=== PATIENT | female | born 1950 ===

== ENCOUNTER 2021-08-05 10:00 | Outpatient (REF) | payer MEDICARE, SELFPAY ==
[2021-08-05 10:23] LABS: MANUAL DIFF FLAG NO
[2021-08-05 10:33] LABS: Basophils Percent Auto 0.3 % (0-2); Eosinophils Absolute Auto 0.1 X10*3/uL (0.0-0.4); Eosinophils Percent Auto 1.4 % (0-4); Hemoglobin 14.7 g/dl (12.0-16.0); Imm Gran Abs Auto 0.02 X10*3/uL (0.00-0.03); Imm Gran Pct Auto 0.2 % (0.0-0.4); Lymphocytes Absolute Auto 2.2 X10*3/uL (1.2-4.9); Lymphocytes Percent Auto 24.3 % (20-40); Mean Corpuscular HGB Conc 33.4 g/dl (31.0-35.0); Mean Corpuscular Hemoglobin 31.4 pg (27.0-33.0); Mean Platelet Volume 9.3 fL (9.4-12.3); Monocytes Absolute Auto 0.7 X10*3/uL (0.1-1.2); Monocytes Percent Auto 8.2 % (2-11); Neutrophils Percent Auto 65.6 % (45-73); Platelet Count 329 X10*3/uL (160-400); Red Blood Count 4.68 X10*6/uL (4.20-5.50); Red Cell Distribution Width 14.2 % (11.0-16.0); White Blood Count 9.1 X10*3/uL (4.8-10.8)
[2021-08-05 11:10] LABS: B Type Natriuretic Peptide 53 pg/mL (<100)
[2021-08-05 11:20] LABS: Alanine Aminotransferase 13 U/L (0-31); Albumin Level 4.5 g/dL (3.5-5.0); Alkaline Phosphatase 58 U/L (39-117); Anion Gap 15 (12-20); Aspartate Amino Transferase 24 U/L (5-31); Bilirubin Total 1.6 mg/dL (0.0-1.0); Blood Urea Nitrogen 20 mg/dL (9-16); Calcium 9.7 mg/dL (8.4-10.2); Carbon Dioxide 22 mmol/L (22-29); Chloride 107 mmol/L (96-108); Cholesterol 193 mg/dL; Estimated Glomerular Filt Rate > 60; Glucose Random 98 mg/dL (60-115); HDL Cholesterol 64 mg/dL; LDL Cholesterol Calculated 104 mg/dl; Potassium 4.8 mmol/L (3.3-5.1); Sodium 139 mmol/L (135-145); Total Protein 7.7 g/dL (6.5-8.0); Triglycerides 125 mg/dL
[2021-08-05 11:40] LABS: Free T4 (Free Thyroxine) 0.98 ng/dL (0.71-1.85); Thyroid Stimulating Hormone 0.72 uIU/mL (0.32-4.0); Vitamin D 25-OH Total 17.8 ng/mL (>30)
[2021-08-05 11:54] LABS: Folate 10.5 ng/mL (> or = 4.0); Vitamin B12 464 pg/mL (200-900)
== END 2021-08-05 10:01 | disposition home or self-care (01) ==
LOC: HO.10HDL 10:00
PROVIDERS: Visit Provider Internal Medicine
DX: I25.10 Atherosclerotic heart disease of native coronary artery without angina pectoris (principal); E78.00 Pure hypercholesterolemia, unspecified
CPT/HCPCS: 36415; 80053; 80061; 82306; 82607; 82746; 83880; 84439; 84443; 85025

== ENCOUNTER 2021-08-12 10:01 | Outpatient (REF) | payer MEDICARE, SELFPAY ==
[2021-08-12 10:48] LABS: Bilirubin Direct 0.4 mg/dL (0.0-0.5); Lactate Dehydrogenase 187 U/L (122-220)
[2021-08-17 21:22] LABS: Haptoglobin 60 mg/dL (43-212)
== END 2021-08-12 10:02 | disposition home or self-care (01) ==
LOC: HO.10HDL 10:01
PROVIDERS: Visit Provider Internal Medicine
DX: E80.6 Other disorders of bilirubin metabolism (principal)
CPT/HCPCS: 36415; 82248; 83010; 83615

== ENCOUNTER 2021-10-06 10:43 | Outpatient (REF) | payer BC, SELFPAY ==
--- NOTE | ~2021-10-06 | CT_ITS ---
EXAMINATION: CT CHEST SCREENING CLINICAL INFORMATION: Nicotine dependence. 52 year-pack history smoking 1 pack per day. COMPARISON: 04/23/2019 and 04/21/2018 TECHNIQUE: Multidetector volumetric CT imaging of the chest is performed without contrast using low dose technique. Additional 2-D coronal and sagittal reformatted images and axial 3-D maximum intensity projection (MIP) images are generated on the CT workstation. This CT examination was performed using dose optimization techniques as appropriate, variously including the following: *Automated exposure control *Adjustment of mA and/or kV according to patient size (this includes techniques or standardized protocols for targeted exams where dose is matched to indication/reason for exam; i.e. extremities or head) *Use of iterative reconstruction technique DLP: 45 mGy-cm FINDINGS: LUNGS: Central airways are patent. No bronchial wall thickening is seen. No bronchiectasis. No confluent parenchymal disease. There are mild changes of centrilobular emphysema present. There are a few scattered calcified granulomas present. There are a few scattered sub-4 mm densities present. No suspicious lung nodules are identified. There has been improvement in previous right middle lobe, lingula, and right lower lobe densities from previous study. MEDIASTINUM: Visualized thyroid gland appears unremarkable. Heart normal size. Coronary artery calcification is seen. No pericardial effusion. Ascending thoracic aorta measures up to 3.9 cm in diameter. There is calcified plaque seen about the aortic arch most prominent involving the origin of the left subclavian artery. This does not appear to be occlusive. No mediastinal or hilar lymphadenopathy is appreciated. PLEURA: There is no pleural effusion. No pleural mass or thickening. AXILLA: No lymphadenopathy. UPPER ABDOMEN: There is again noted to be an approximately 1.9 x 1.7 cm lipid-rich adenoma in the right adrenal gland. OSSEOUS STRUCTURES: No suspicious destructive bony lesions identified. CT/CT lung screening IMPRESSION: Old granulomatous disease. Mild changes of centrilobular emphysema. No suspicious lung nodules identified. ASSESSMENT: Lung-RADS category 2: Benign. RECOMMENDATION: Routine annual low-dose CT screening in 12 months.
== END 2021-10-06 10:44 | disposition home or self-care (01) ==
LOC: HO.CT 10:43
PROVIDERS: PCP Internal Medicine; Visit Provider Physician Assistant Medical
DX: Z12.2 Encounter for screening for malignant neoplasm of respiratory organs (principal); F17.210 Nicotine dependence, cigarettes, uncomplicated
CPT/HCPCS: 71271

== ENCOUNTER 2021-10-26 11:16 | Outpatient (REF) | payer MEDICARE, SELFPAY ==
[2021-10-26 13:57] LABS: Estimated Average Glucose 94 mg/dL; Hemoglobin A1C 113.5416 umol/L; Hemoglobin A1c % 4.9 %
[2021-10-26 14:32] LABS: Alanine Aminotransferase 16 U/L (0-31); Albumin Level 4.2 g/dL (3.5-5.0); Alkaline Phosphatase 59 U/L (39-117); Anion Gap 11 (12-20); Aspartate Amino Transferase 18 U/L (5-31); Bilirubin Total 1.3 mg/dL (0.0-1.0); Blood Urea Nitrogen 25 mg/dL (9-16); Calcium 9.7 mg/dL (8.4-10.2); Carbon Dioxide 25 mmol/L (22-29); Chloride 108 mmol/L (96-108); Cholesterol 143 mg/dL; Estimated Glomerular Filt Rate > 60; Glucose Random 94 mg/dL (60-115); HDL Cholesterol 54 mg/dL; LDL Cholesterol Calculated 69 mg/dl; Potassium 4.5 mmol/L (3.3-5.1); Sodium 139 mmol/L (135-145); Total Protein 7.1 g/dL (6.5-8.0); Triglycerides 103 mg/dL
[2021-10-26 14:43] LABS: Vitamin D 25-OH Total 16.7 ng/mL (>30)
== END 2021-10-26 11:17 | disposition home or self-care (01) ==
LOC: HO.10HDL 11:16
PROVIDERS: Visit Provider Internal Medicine
DX: R73.02 Impaired glucose tolerance (oral) (principal); E78.00 Pure hypercholesterolemia, unspecified; E55.9 Vitamin D deficiency, unspecified
CPT/HCPCS: 36415; 80053; 80061; 82306; 83036

== ENCOUNTER 2022-12-10 15:12 | Outpatient (REF) | payer MEDICARE, SELFPAY ==
--- NOTE | ~2022-12-10 | CT_ITS ---
EXAMINATION: CT CHEST SCREENING CLINICAL INFORMATION: F17.210 - Nicotine dependence, cigarettes, uncomplicated. 50 pack years. COMPARISON: CT lung screening 10/06/2021, 04/23/2019 TECHNIQUE: Multidetector volumetric CT imaging of the chest is performed without contrast using low dose technique. Additional 2D coronal and sagittal reformatted images and axial 3D maximum intensity projection (MIP) images are generated on the CT workstation. This CT examination was performed using dose optimization techniques as appropriate, variously including the following: *Automated exposure control *Adjustment of mA and/or kV according to patient size (this includes techniques or standardized protocols for targeted exams where dose is matched to indication/reason for exam; i.e. extremities or head) *Use of iterative reconstruction technique DLP: 54 mGy-cm FINDINGS: LUNGS: Central airways are clear. No endobronchial lesion or bronchiectasis. No airspace consolidation or groundglass opacity. There is fine disc atelectasis versus fine linear scar at the bases. There are some small scattered calcified granulomata, largest under 4 mm. There is no mass or significant nodule. No interval significant change. MEDIASTINUM: No hilar or mediastinal adenopathy. Heart size normal. No pericardial effusion. Ascending aorta 3.9 cm similar to prior exam. No interval aneurysmal enlargement. CORONARY ARTERY CALCIFICATION: Coronary atherosclerotic calcifications present. PLEURA: There is no pleural effusion. No pleural mass or thickening. AXILLA: No lymphadenopathy. UPPER ABDOMEN: Right adrenal lipid rich adenoma approximately 2.4 x 2.2 cm, 9 HU attenuation. Prior measurement approximately 2.0 cm. No significant change. OSSEOUS STRUCTURES: Unremarkable. CT/CT lung screening IMPRESSION: -Small calcified granulomata. No significant nodule or interval change. -Ascending the aorta is stable, approximately 3.9 cm. -Right adrenal lipid rich adenoma 2.4 cm, prior measurement 2.0 cm. No significant change.. ASSESSMENT: Lung-RADS category 2: Benign RECOMMENDATION: Routine annual low-dose CT screening in 12 months.
== END 2022-12-10 15:13 | disposition home or self-care (01) ==
LOC: HO.CT 15:12
PROVIDERS: PCP Internal Medicine; Visit Provider Physician Assistant Medical
DX: Z12.2 Encounter for screening for malignant neoplasm of respiratory organs (principal); F17.210 Nicotine dependence, cigarettes, uncomplicated
CPT/HCPCS: 71271

== ENCOUNTER 2023-03-09 08:50 | Outpatient (REF) | payer MEDICARE, SELFPAY ==
[2023-03-09 10:38] LABS: MANUAL DIFF FLAG NO
[2023-03-09 10:41] LABS: Basophils Absolute Auto 0.1 X10*3/uL (0.0-0.2); Basophils Percent Auto 0.6 % (0-2); Eosinophils Absolute Auto 0.3 X10*3/uL (0.0-0.4); Eosinophils Percent Auto 3.3 % (0-4); Hematocrit 47.9 % (37.0-47.0); Hemoglobin 15.9 g/dl (12.0-16.0); Imm Gran Abs Auto 0.03 X10*3/uL (0.00-0.03); Imm Gran Pct Auto 0.3 % (0.0-0.4); Lymphocytes Absolute Auto 2.5 X10*3/uL (1.2-4.9); Lymphocytes Percent Auto 28.8 % (20-40); Mean Corpuscular HGB Conc 33.2 g/dl (31.0-35.0); Mean Corpuscular Hemoglobin 31.1 pg (27.0-33.0); Mean Corpuscular Volume 93.6 fL (80.0-98.0); Mean Platelet Volume 9.6 fL (9.4-12.3); Monocytes Absolute Auto 0.7 X10*3/uL (0.1-1.2); Monocytes Percent Auto 7.8 % (2-11); Neutrophils Absolute Auto 5.1 x10*3/uL (2.0-8.3); Neutrophils Percent Auto 59.2 % (45-73); Platelet Count 349 X10*3/uL (160-400); Red Blood Count 5.12 X10*6/uL (4.20-5.50); Red Cell Distribution Width 13.5 % (11.0-16.0); White Blood Count 8.7 X10*3/uL (4.8-10.8)
[2023-03-09 10:48] LABS: Estimated Average Glucose 94 mg/dL; Hemoglobin A1c % 4.9 %
[2023-03-09 10:58] LABS: Alanine Aminotransferase 11 U/L (0-31); Albumin Level 4.4 g/dL (3.5-5.0); Alkaline Phosphatase 88 U/L (39-117); Anion Gap 12 (12-20); Aspartate Amino Transferase 16 U/L (5-31); Bilirubin Total 1.2 mg/dL (0.0-1.0); Blood Urea Nitrogen 28 mg/dL (9-16); Calcium 9.9 mg/dL (8.4-10.2); Carbon Dioxide 25 mmol/L (22-29); Chloride 109 mmol/L (96-108); Cholesterol 185 mg/dL; Estimated Glomerular Filt Rate 59; Glucose Fasting 111 mg/dL (60-99); HDL Cholesterol 58 mg/dL; LDL Cholesterol Calculated 108 mg/dl; Potassium 4.4 mmol/L (3.3-5.1); Sodium 142 mmol/L (135-145); Total Protein 7.2 g/dL (6.5-8.0); Triglycerides 96 mg/dL
[2023-03-09 11:14] LABS: TSH reflex Free T4 1.03 uIU/mL (0.32-4.0); Vitamin D 25-OH Total 20.9 ng/mL (>30)
== END 2023-03-09 08:51 | disposition home or self-care (01) ==
LOC: HO.10HDL 08:50
PROVIDERS: Visit Provider Nurse Practitioner Family
DX: I25.10 Atherosclerotic heart disease of native coronary artery without angina pectoris (principal); R73.02 Impaired glucose tolerance (oral); E55.9 Vitamin D deficiency, unspecified; M47.816 Spondylosis without myelopathy or radiculopathy, lumbar region; F32.9 Major depressive disorder, single episode, unspecified; J44.9 Chronic obstructive pulmonary disease, unspecified; Z85.51 Personal history of malignant neoplasm of bladder
CPT/HCPCS: 36415; 80053; 80061; 82306; 83036; 84443; 85025

== ENCOUNTER 2023-06-22 08:59 | Outpatient (AMB) | payer MEDICARE, SELFPAY ==
[2023-06-22 09:07] VITALS: BP 130/76; PULSE 86; O2SAT 97; BMI 25.5
--- NOTE | 2023-06-22 09:07 | A.OFFPC_ITS ---
Vital Signs 06/22/23 09:07 Height 5 ft 6 in Weight 158 lb BMI 25.5 BP 130/76 Blood Pressure Location Lt brachial Position Sitting Pulse 86 Pulse Source Pulse Oximeter Pulse Oximetry (%) 97 Oxygen Delivery Method Room Air Intake Visit Reasons: 3mth f/u Allergies Sulfa (Sulfonamide Antibiotics) Allergy (Intermediate, Verified 06/22/23 09:08) allergic reaction aspirin [From Percodan] Allergy (Unknown, Verified 06/22/23 09:08) Unknown fentanyl Allergy (Unknown, Verified 06/22/23 09:08) vomiting morphine Allergy (Unknown, Verified 06/22/23 09:08) Unknown oxycodone [From Percodan] Allergy (Unknown, Verified 06/22/23 09:08) Unknown varenicline [From CHANTIX] Allergy (Unknown, Verified 06/22/23 09:08) NAUSEA & VOMITING ANTIBIOTICS Allergy (Unknown, Uncoded 06/22/23 09:08) NAUSEA & VOMITING Medication List - Last Reconciled 06/22/23 by Elisa House MD albuterol sulfate 90 mcg/actuation (ProAir HFA) 2 puffs inhalation Q4-6H PRN aspirin 81 mg PO DAILY cholecalciferol (vitamin D3) 25 mcg PO DAILY sertraline 12.5 mg PO DAILY simvastatin 20 mg PO BEDTIME 90 days tramadol 50 mg PO DAILY PRN triamcinolone acetonide 0.1% 1 appl topical DAILY 14 days Tobacco use date assessed: 03/11/23 Fall risk assessment: No Falls in past year Last assessed Fall Risk: 06/22/23 Dental Screening Dental Screen Date: 06/22/23 Did you have a dental visit in the last 12 months?: No Did you have a dental problem in the last 6 months where you did not have access to dental care?: No Was dental information given to patient?: No HPI 3mth f/u HPI Details 73-year-old female smoker with a history of COPD coronary artery disease impaired glucose tolerance hypercholesterolemia generalized anxiety disorder lumbar degenerative disc disease last seen in February 2023 blood work was requested and reminded about colonoscopy and mammogram patient is here for follow-up. Review of the notes seen orthopedics MRI of the lumbar spine recently change lumbar radiculopathy L5 left lower extremity epidural steroids before advised to see [facility] Dr. Capps patient wishes to avoid surgery. Patient has seen Urology also with regards to the history of bladder cancer June 2013 recurrence 2014 surgical removal March 2014 with mitomycin-C installation urine cytology follow-up in 1 year. Patient has not had blood work done stating the blood work request was there but it is in the chart, patient continues to smoke states cannot stop because of anxiety on sertraline advised to increase the does declined counseling. Advised abuse pr to add to sertraline. 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 Mother Diabetes Brother Hemochromatosis Stomach cancer Sister Hemochromatosis Son In good health Social History Housing: House Alcohol intake: current Alcohol intake frequency: holidays/special occasions only Patient Tobacco Use Status: Current everyday Tobacco user Tobacco use type: Cigarette Cigarette Packs Per Day: 0.5 Cigarettes Per Day: 3 e-Cigarette/Vaping Use: Never Used Second Hand Smoke Exposure: No service: No Current occupational status: retired Cognitive needs: No Hearing needs: No Vision needs: Yes Questionnaire PHQ-9 Over the last 2 weeks, how often have you been bothered by any of the following problems? 1. Little interest or pleasure in doing things: nearly every day 2. Feeling down, depressed, or hopeless: nearly every day 3. Trouble falling or staying asleep, or sleeping too much: more than half the days 4. Feeling tired or having little energy: more than half the days 5. Poor appetite or overeating: not at all 6. Feeling bad about yourself - or that you are a failure or have let yourself or your family down: not at all 7. Trouble concentrating on things, such as reading the newspaper or watching television: not at all 8. Moving or speaking so slowly that other people could have noticed. Or the opposite - being so fidgety or restless that you have been moving around a lot more than usual: not at all 9. Thoughts that you would be better off or of hurting yourself in some way: not at all Total score: 10 Depression Screening Interpretation: Negative 83178 - PHQ-9 Billing: Yes Source: Developed by Drs. Irineo Rao, Terese Izquierdo, Demian Ocasio and colleagues, with an educational gabbie from [employer]. Thrive Questionnaire Date Thrive assessed: 03/11/23 AUDIT C Alcohol Use Questionnaire (AUDIT-C) 1. How often do you have a drink containing alcohol?: 2-4 times a month 2. How many drinks containing alcohol do you have on a typical day when you are drinking?: 1 or 2 3. How often do you have six or more drinks on one occasion?: Never Total Score: 2 Score Reviewed/Action Taken: No STEPHANIE-7 AMB Questionnaire STEPHANIE-7 Date STEPHANIE - 7 assessed: 03/11/23 Source: Developed by Drs. Irineo Rao, Terese Izquierdo, Demian Ocasio and colleagues, with an educational gabbie from [employer]. Physical exam (Primary Care) Vital Signs: Last Vital Signs Pulse 86 06/22/23 09:07 BP 130/76 06/22/23 09:07 Pulse Ox 97 06/22/23 09:07 Oxygen Delivery Method Room Air 06/22/23 09:07 BMI result Body Mass Index 25.5 Tobacco/Smoking Status: Tobacco use Status Tobacco use date assessed 03/11/23 06/22/23 09:12 Patient Tobacco Use Status Current everyday Tobacco 06/22/23 09:12 Tobacco use type Cigarette 06/22/23 09:12 e-Cigarette/Vaping Use Never Used 06/22/23 09:12 PHQ-9: PHQ-9 Score PHQ-9: Total score 10 06/22/23 09:12 Depression Screening Interpretation: Negative Thrive Assessment: Date of Thrive Assessment Date Thrive assessed 03/11/23 06/22/23 09:12 Const General: alert; No acute distress Eyes Conjunctivae: conjunctivae normal Resp Auscultation: clear to auscultation bilaterally Cardio Rate: regular rate Rhythm: regular rhythm GI Inspection: Yes normal to inspection Extrem General: Yes normal to inspection and No edema Assessment and Plan Assessment & Plan (1) Colon cancer screening: Code(s): Z12.11 - Encounter for screening for malignant neoplasm of colon Plan: Patient's reminded about the colonoscopy (2) Lumbar degenerative disc disease: Code(s): M51.36 - Other intervertebral disc degeneration, lumbar region Plan: Patient has seen Orthopedics and has been referred to [facility] (3) Tobacco abuse: Comment: CT scan March 20162017 Dr. Castañeda, November 2022 Code(s): Z72.0 - Tobacco use Plan: Strongly advised to stop! (4) Coronary artery disease: Code(s): I25.10 - Atherosclerotic heart disease of [place] coronary artery without angina pectoris Qualifiers: Coronary Disease-Associated Artery/Lesion type: [place] artery [place] vs. transplanted heart: [place] heart Associated angina: without angina Qualified Code(s): I25.10 - Atherosclerotic heart disease of [place] coronary artery without angina pectoris Plan: Control the cholesterol, weight, blood pressure (5) COPD (chronic obstructive pulmonary disease): Code(s): J44.9 - Chronic obstructive pulmonary disease, unspecified Qualifiers: COPD type: emphysema Emphysema type: panlobular Qualified Code(s): J43.1 - Panlobular emphysema Plan: Strongly advised to stop smoking! Continue with inhaler as needed (6) Impaired glucose tolerance: Code(s): R73.02 - Impaired glucose tolerance (oral) Plan: Decrease the amount of carbohydrate intake, pasta, bread, rice and potatoes are all sugar and that is aside from all the sweet stuff, remember that fruits are good but they are Sweet also. (7) Hypercholesterolemia: Code(s): E78.00 - Pure hypercholesterolemia, unspecified Plan: Avoid fried foods, chicken skin, eggs, butter margarine, pastries and meat. Be it pork or beef they have a lot of cholesterol LDL goal of less than 70 and triglyceride of less than 150 patient is on simvastatin 20 mg once a day (8) History of bladder cancer: Comment: June 2013 recurrence 2014 bladder biopsy December 10- Code(s): Z85.51 - Personal history of malignant neoplasm of bladder Plan: Patient follows up with urology has cytology testing (9) Generalized anxiety disorder: Comment: Declined counseling or medication Code(s): F41.1 - Generalized anxiety disorder Plan: Continue with medication as needed (10) Breast cancer screening by mammogram: Code(s): - Encounter for screening mammogram for malignant neoplasm of breast Orders: Orders MM tomosynthesis screening BI Today Z. - Encounter for screening mammogram for malignant neoplasm of breast Referrals Gastroenterology Referral Z12.11 - Encounter for screening for malignant neoplasm of colon Medications: New sertraline 25 mg PO DAILY F41.1 - Generalized anxiety disorder buspirone 5 mg PO BID 60 tabs 3RF F41.1 - Generalized anxiety disorder Refilled tramadol 50 mg PO DAILY PRN 30 tabs 0RF pain F41.1 - Generalized anxiety disorder Coding Level of Care Code Est Pt Level 4 (35181) Diagnoses Colon cancer screening Z12.11 Lumbar degenerative disc disease M51.36 Tobacco abuse Z72.0 Coronary artery disease I25.10 Coronary Disease-Associated Artery/Lesion type: [place] artery [place] vs. transplanted heart: [place] heart Associated angina: without angina COPD (chronic obstructive pulmonary disease) J43.1 COPD type: emphysema Emphysema type: panlobular Impaired glucose tolerance R73.02 Hypercholesterolemia E78.00 History of bladder cancer Z85.51 Generalized anxiety disorder F41.1 Breast cancer screening by mammogram Z11.20
== END 2023-06-22 09:38 | disposition home or self-care (01) ==
PROVIDERS: PCP Internal Medicine; Visit Provider Internal Medicine
DX: J43.1 Panlobular emphysema (principal); Z12.11 Encounter for screening for malignant neoplasm of colon; R73.02 Impaired glucose tolerance (oral); Z85.51 Personal history of malignant neoplasm of bladder; M51.36 Other intervertebral disc degeneration, lumbar region; Z72.0 Tobacco use; I25.10 Atherosclerotic heart disease of native coronary artery without angina pectoris; E78.00 Pure hypercholesterolemia, unspecified; F41.1 Generalized anxiety disorder
CPT/HCPCS: 99214

== ENCOUNTER 2023-07-27 10:56 | Outpatient (REF) | payer MEDICARE, SELFPAY | END 2023-07-27 10:57 | disposition home or self-care (01) | LOC: HO.MAMMO 10:56 | PROVIDERS: PCP Internal Medicine; Visit Provider Internal Medicine | DX: Z12.31 Encounter for screening mammogram for malignant neoplasm of breast (principal) | CPT/HCPCS: 77063; 77067 ==

== ENCOUNTER → 2023-07-27 11:15 | Outpatient (BNV) | payer MEDICARE, SELFPAY | PROVIDERS: PCP Internal Medicine; Visit Provider Radiology Diagnostic Radiology | DX: Z12.31 Encounter for screening mammogram for malignant neoplasm of breast (principal) | CPT/HCPCS: 77063; 77067 ==

== ENCOUNTER → 2023-08-23 09:13 | Outpatient (BNVA) | payer MEDICARE, SELFPAY | PROVIDERS: PCP Internal Medicine; Visit Provider Nurse Practitioner Family ==

== ENCOUNTER 2023-08-30 13:13 | Outpatient (AMB) | payer MEDICARE, SELFPAY ==
[2023-08-30 13:18] VITALS: BP 130/102; PULSE 96; O2SAT 95; BMI 24.9
--- NOTE | 2023-08-30 13:24 | MHC.PC.OV ---
Vital Signs 08/30/23 13:18 Height 5 ft 6 in Weight 154 lb 2 oz BMI 24.9 BP 130/102 H Blood Pressure Location Lt brachial Position Sitting Pulse 96 Pulse Source Pulse Oximeter Pulse Oximetry (%) 95 Oxygen Delivery Method Room Air Intake Visit Reasons: Hypertension Allergies erythromycin base Allergy (Severe, Verified 08/30/23 13:21) Anaphylaxis Penicillins Allergy (Severe, Verified 08/30/23 13:21) Unknown Sulfa (Sulfonamide Antibiotics) Allergy (Intermediate, Verified 08/30/23 13:21) allergic reaction fentanyl Allergy (Unknown, Verified 08/30/23 13:21) vomiting morphine Allergy (Unknown, Verified 08/30/23 13:21) Unknown oxycodone [From Percodan] Allergy (Unknown, Verified 08/30/23 13:21) Unknown varenicline [From CHANTIX] Allergy (Unknown, Verified 08/30/23 13:21) NAUSEA & VOMITING ANTIBIOTICS Allergy (Unknown, Uncoded 08/30/23 13:21) NAUSEA & VOMITING Medication List - Last Reconciled 08/30/23 by Elisa House MD albuterol sulfate 90 mcg/actuation (ProAir HFA) 2 puffs inhalation Q4-6H PRN alprazolam 0.25 mg PO BID PRN aspirin 81 mg PO DAILY bisacodyl (Dulcolax (bisacodyl)) 10 mg (2 x 5 mg) PO ONCE 1 day cholecalciferol (vitamin D3) 25 mcg PO DAILY hydrochlorothiazide 25 mg PO QAM polyethylene glycol 3350 (Miralax) 238 grams PO ONCE sertraline 25 mg PO DAILY simvastatin 20 mg PO BEDTIME 90 days Tobacco use date assessed: 03/11/23 HPI Hypertension HPI Details 73-year-old female smoker with coronary artery disease COPD impaired glucose tolerance hypercholesterolemia generalized anxiety disorder and lumbar degenerative disc disease last seen in June 2023 coming in for follow-up. Noted to have an elevated blood pressure. Patient is due for colonoscopy, up-to-date with mammogram. Review of the notes has met with gastroenterology for colonoscopy concern about the history of hemochromatosis for therapeutic phlebotomy. Patient is asking for anxiety medication not take the buspirone and stopped it. The sertraline also. Discussed that patient has been handling this anxiety for multiple number years already and that she does not need therapy [facility] Medical History (Updated 08/30/23 @ 14:10 by Elisa House MD) Hypertension COPD (chronic obstructive pulmonary disease) Coronary artery disease Hepatitis C History of bladder cancer Tobacco abuse Lumbar spondylosis [place] disease Hemochromatosis Surgical History H/O colonoscopy History of liver biopsy History of removal of cyst History of tumor History of oral surgery History of section Family History Father No problems noted. Mother Diabetes Brother Hemochromatosis Stomach cancer Sister Hemochromatosis Son In good health Social History Housing: House Alcohol intake: current Alcohol intake frequency: holidays/special occasions only Patient Tobacco Use Status: Current everyday Tobacco user Tobacco use type: Cigarette Cigarette Packs Per Day: 0.5 Cigarettes Per Day: 3 e-Cigarette/Vaping Use: Never Used Second Hand Smoke Exposure: No service: No Current occupational status: retired Cognitive needs: No Hearing needs: No Vision needs: Yes Questionnaire PHQ-9 Over the last 2 weeks, how often have you been bothered by any of the following problems? 1. Little interest or pleasure in doing things: nearly every day 2. Feeling down, depressed, or hopeless: nearly every day 3. Trouble falling or staying asleep, or sleeping too much: more than half the days 4. Feeling tired or having little energy: more than half the days 5. Poor appetite or overeating: not at all 6. Feeling bad about yourself - or that you are a failure or have let yourself or your family down: not at all 7. Trouble concentrating on things, such as reading the newspaper or watching television: not at all 8. Moving or speaking so slowly that other people could have noticed. Or the opposite - being so fidgety or restless that you have been moving around a lot more than usual: not at all 9. Thoughts that you would be better off or of hurting yourself in some way: not at all Total score: 10 Depression Screening Interpretation: Negative Depression Screening Done: Yes 23221 - PHQ-9 Billing: Yes Source: Developed by Drs. Irineo Rao, Terese BDemian Nicholas and colleagues, with an educational gabbie from [employer]. Thrive Questionnaire Date Thrive assessed: 03/11/23 I am a: Patient What is your living situation today?: I have a steady place to live Within the past 12 months, did the food you bought not last and you didn't have the money to get more?: Never true Within the past 12 months, did you worry whether your food would run out before you got money to buy more?: Never true Currently or been in a relationship where the following occur: no concerns reported AUDIT C Alcohol Use Questionnaire (AUDIT-C) 1. How often do you have a drink containing alcohol?: 2-4 times a month 2. How many drinks containing alcohol do you have on a typical day when you are drinking?: 1 or 2 3. How often do you have six or more drinks on one occasion?: Never Total Score: 2 Score Reviewed/Action Taken: No STEPHANIE-7 AMB Questionnaire STEPHANIE-7 Date STEPHANIE - 7 assessed: 03/11/23 Feeling nervous, anxious, or on edge: 3 = Nearly every day Not being able to stop or control worryin = Nearly every day Worrying too much about different things: 3 = Nearly every day Trouble relaxin = Nearly every day Being so restless that it is hard to sit still: 3 = Nearly every day Becoming easily annoyed or irritable: 3 = Nearly every day Feeling afraid as if something awful might happen: 3 = Nearly every day Total STEPHANIE-7 score (0-4 normal; 5-9 mild; 10-14 moderate; 15-21 severe): 21 Source: Developed by Drs. Irineo Rao, Demian Russ and colleagues, with an educational gabbie from [employer]. STEPHANIE-7 Assessment Billing STEPHANIE-7 Assessment Tool: STEPHANIE-7 Assessment 14030 Physical exam (Primary Care) Vital Signs: Last Vital Signs Pulse 96 08/30/23 13:18 BP 130/102 H 08/30/23 13:18 Pulse Ox 95 08/30/23 13:18 Oxygen Delivery Method Room Air 08/30/23 13:18 BMI result Body Mass Index 24.9 Tobacco/Smoking Status: Tobacco use Status Tobacco use date assessed 03/11/23 08/30/23 13:26 Patient Tobacco Use Status Current everyday Tobacco 08/30/23 13:26 Tobacco use type Cigarette 08/30/23 13:26 e-Cigarette/Vaping Use Never Used 08/30/23 13:26 PHQ-9: PHQ-9 Score PHQ-9: Total score 08/30/23 13:26 Depression Screening Interpretation: Negative Thrive Assessment: Date of Thrive Assessment Date Thrive assessed 03/11/23 08/30/23 13:26 Currently or been in a relationship where the following occur: no concerns reported Const General: alert; No acute distress Eyes Conjunctivae: conjunctivae normal Resp Auscultation: clear to auscultation bilaterally Cardio Rate: regular rate Rhythm: regular rhythm GI Inspection: Yes normal to inspection Extrem General: Yes normal to inspection and No edema Assessment and Plan Assessment & Plan (1) Generalized anxiety disorder: Comment: Declined counseling or medication Code(s): F41.1 - Generalized anxiety disorder Plan: Stable (2) Hypercholesterolemia: Code(s): E78.00 - Pure hypercholesterolemia, unspecified Plan: Avoid fried foods, chicken skin, eggs, butter margarine, pastries and meat. Be it pork or beef they have a lot of cholesterol LDL goal of less than 70 and triglyceride of less than 150. Patient on simvastatin 20 mg February 2023 was 103 (3) Impaired glucose tolerance: Code(s): R73.02 - Impaired glucose tolerance (oral) Plan: Decrease the amount of carbohydrate intake, pasta, bread, rice and potatoes are all sugar and that is aside from all the sweet stuff, remember that fruits are good but they are Sweet also. (4) COPD (chronic obstructive pulmonary disease): Code(s): J44.9 - Chronic obstructive pulmonary disease, unspecified Qualifiers: COPD type: emphysema Emphysema type: panlobular Qualified Code(s): J43.1 - Panlobular emphysema Plan: Patient is strongly advised to stop smoking and continue with albuterol as needed (5) Coronary artery disease: Code(s): I25.10 - Atherosclerotic heart disease of [place] coronary artery without angina pectoris Qualifiers: Coronary Disease-Associated Artery/Lesion type: [place] artery [place] vs. transplanted heart: [place] heart Associated angina: without angina Qualified Code(s): I25.10 - Atherosclerotic heart disease of [place] coronary artery without angina pectoris Plan: Control the cholesterol, weight, blood pressure (6) Tobacco abuse: Comment: CT scan March 20162017 Dr. Castañeda, November 2022 Code(s): Z72.0 - Tobacco use Plan: Patient strongly advised to stop smoking! (7) Hypertension: Code(s): I10 - Essential (primary) hypertension Plan: Low-salt diet will start on med (8) Hemochromatosis: Comment: Dr. Hyman Code(s): E83.119 - Hemochromatosis, unspecified Plan: Explained to the patient that hemochromatosis is really handled by the Hematology-Oncology. Will do the blood work. Orders: Orders Complete Blood Count Auto Diff Today E83.119 - Hemochromatosis, unspecified IRON PROFILE Today E83.119 - Hemochromatosis, unspecified Reticulocyte Count Today E83.119 - Hemochromatosis, unspecified Ferritin Today E83.119 - Hemochromatosis, unspecified Vitamin B12 and Folate Today E83.119 - Hemochromatosis, unspecified Vitamin D 25-OH Total Today R79.89 - Other specified abnormal findings of blood chemistry Medications: New hydrochlorothiazide 25 mg PO QAM 30 tabs 3RF I10 - Essential (primary) hypertension sertraline 25 mg PO DAILY 30 tabs 3RF F41.1 - Generalized anxiety disorder Refilled alprazolam 0.25 mg PO BID PRN 45 tabs 1RF anxiety F41.1 - Generalized anxiety disorder Coding Level of Care Code Est Pt Level 4 (41482) Diagnoses Generalized anxiety disorder F41.1 Hypercholesterolemia E78.00 Impaired glucose tolerance R73.02 Panlobular emphysema J43.1 COPD type: emphysema Emphysema type: panlobular Coronary artery disease involving [place] coronary artery of [place] heart without angina pectoris I25.10 Coronary Disease-Associated Artery/Lesion type: [place] artery [place] vs. transplanted heart: [place] heart Associated angina: without angina Tobacco abuse Z72.0 Hypertension I10 Hemochromatosis E83.119 Additional Codes STEPHANIE-7 Assessment Billing - STEPHANIE-7 Assessment Tool: STEPHANIE-7 Assessment 57500 ([id number])
== END 2023-08-30 14:18 | disposition home or self-care (01) ==
PROVIDERS: PCP Internal Medicine; Visit Provider Internal Medicine
DX: I10 Essential (primary) hypertension (principal); E78.00 Pure hypercholesterolemia, unspecified; J43.1 Panlobular emphysema; I25.10 Atherosclerotic heart disease of native coronary artery without angina pectoris; F41.1 Generalized anxiety disorder; Z72.0 Tobacco use; E83.119 Hemochromatosis, unspecified
CPT/HCPCS: 96127; 99214

== ENCOUNTER 2023-09-27 09:56 | Outpatient (REF) | payer MEDICARE, SELFPAY ==
[2023-09-27 10:40] LABS: MANUAL DIFF FLAG NO
[2023-09-27 10:51] LABS: Basophils Absolute Auto 0.1 X10*3/uL (0.0-0.2); Basophils Percent Auto 0.5 % (0-2); Eosinophils Absolute Auto 0.2 X10*3/uL (0.0-0.4); Eosinophils Percent Auto 2.5 % (0-4); Hematocrit 47.9 % (37.0-47.0); Hemoglobin 15.9 g/dl (12.0-16.0); Imm Gran Abs Auto 0.02 X10*3/uL (0.00-0.03); Imm Gran Pct Auto 0.2 % (0.0-0.4); Immature Retic Fraction 6.1 % (3.0-15.9); Lymphocytes Absolute Auto 3.2 X10*3/uL (1.2-4.9); Lymphocytes Percent Auto 34.1 % (20-40); Mean Corpuscular HGB Conc 33.2 g/dl (31.0-35.0); Mean Corpuscular Hemoglobin 30.6 pg (27.0-33.0); Mean Corpuscular Volume 92.3 fL (80.0-98.0); Mean Platelet Volume 9.4 fL (9.4-12.3); Monocytes Absolute Auto 0.8 X10*3/uL (0.1-1.2); Monocytes Percent Auto 8.2 % (2-11); Neutrophils Percent Auto 54.5 % (45-73); Platelet Count 357 X10*3/uL (160-400); Red Blood Count 5.19 X10*6/uL (4.20-5.50); Reticulocyte Percent 1.4 % (0.5-1.8); Reticulocytes Absolute 0.071 X10*6/uL (0.026-0.095); White Blood Count 9.3 X10*3/uL (4.8-10.8)
[2023-09-27 11:00] LABS: Estimated Average Glucose 94 mg/dL; Hemoglobin A1c % 4.9 % (<6.0)
[2023-09-27 11:21] LABS: Alanine Aminotransferase 12 U/L (0-31); Albumin Level 4.3 g/dL (3.5-5.0); Alkaline Phosphatase 65 U/L (39-117); Anion Gap 13 (12-20); Aspartate Amino Transferase 16 U/L (5-31); Bilirubin Total 0.9 mg/dL (0.0-1.0); Blood Urea Nitrogen 13 mg/dL (9-16); Calcium 9.8 mg/dL (8.4-10.2); Carbon Dioxide 28 mmol/L (22-29); Chloride 105 mmol/L (96-108); Cholesterol 175 mg/dL (<200); Estimated Glomerular Filt Rate > 60; Glucose Random 144 mg/dL (60-115); HDL Cholesterol 46 mg/dL (>40); Iron 139 mcg/dL (30-160); LDL Cholesterol Calculated 82 mg/dL (<100); Percent Iron Saturation 59 % (15-50); Potassium 3.2 mmol/L (3.3-5.1); Sodium 143 mmol/L (135-145); Total Iron Binding Capacity 236 mcg/dL (228-428); Total Protein 7.6 g/dL (6.5-8.0); Triglycerides 237 mg/dL (<150); Unsaturated Iron Binding 97 ug/dL
[2023-09-27 11:26] LABS: Ferritin 118 ng/mL (10-250); Vitamin D 25-OH Total 27.1 ng/mL (>30)
[2023-09-27 11:34] LABS: Folate 5.7 ng/mL (> or = 4.0); Vitamin B12 535 pg/mL (200-900)
== END 2023-09-27 09:57 | disposition home or self-care (01) ==
LOC: HO.10HDL 09:56
PROVIDERS: Visit Provider Internal Medicine
DX: E78.00 Pure hypercholesterolemia, unspecified (principal); E83.119 Hemochromatosis, unspecified; R73.02 Impaired glucose tolerance (oral); E55.9 Vitamin D deficiency, unspecified
CPT/HCPCS: 36415; 80053; 80061; 82306; 82607; 82728; 82746; 83036; 83540; 85025; 85045

== ENCOUNTER 2023-09-29 09:22 | Outpatient (AMB) | payer MEDICARE, SELFPAY ==
[2023-09-29 09:27] VITALS: BP 134/76; PULSE 92; O2SAT 95; BMI 25.2
--- NOTE | 2023-09-29 09:27 | MHC.PC.OV ---
Vital Signs 09/29/23 09:27 Height 5 ft 6 in Weight 70.76 kg BMI 25.2 BP 134/76 Blood Pressure Location Lt brachial Position Sitting Pulse 92 Pulse Source Pulse Oximeter Pulse Oximetry (%) 95 Oxygen Delivery Method Room Air Intake Visit Reasons: 3 month f/u Allergies erythromycin base Allergy (Severe, Verified 09/29/23 09:27) Anaphylaxis Penicillins Allergy (Severe, Verified 09/29/23 09:27) Unknown Sulfa (Sulfonamide Antibiotics) Allergy (Intermediate, Verified 09/29/23 09:) allergic reaction fentanyl Allergy (Unknown, Verified 09/29/23 09:) vomiting morphine Allergy (Unknown, Verified 09/29/23 09:) Unknown oxycodone [From Percodan] Allergy (Unknown, Verified 09/29/23:) Unknown varenicline [From CHANTIX] Allergy (Unknown, Verified 09/29/23 09:) NAUSEA & VOMITING ANTIBIOTICS Allergy (Unknown, Uncoded 09/29/23 09:) NAUSEA & VOMITING Medication List - Last Reconciled 09/29/23 by Elisa House MD albuterol sulfate 90 mcg/actuation (ProAir HFA) 2 puffs inhalation Q4-6H PRN alprazolam 0.5 mg PO BID PRN aspirin 81 mg PO DAILY bisacodyl (Dulcolax (bisacodyl)) 10 mg (2 x 5 mg) PO ONCE 1 day cholecalciferol (vitamin D3) 25 mcg PO DAILY metoprolol succinate ER 25 mg PO DAILY polyethylene glycol 3350 (Miralax) 238 grams PO ONCE sertraline 25 mg PO DAILY simvastatin 20 mg PO BEDTIME 90 days Tobacco use date assessed: 03/11/23 Fall risk assessment: No Falls in past year Last assessed Fall Risk: 09/29/23 Dental Screening Dental Screen Date: 09/29/23 Did you have a dental visit in the last 12 months?: No Did you have a dental problem in the last 6 months where you did not have access to dental care?: No Was dental information given to patient?: No HPI 3 month f/u HPI Details 73-year-old female smoker with a history of hypercholesterolemia COPD impaired glucose tolerance coronary artery disease hypertension, hemochromatosis and generalized anxiety disorder last seen in August 2023. Blood work was requested and is here for follow-up. [facility] Medical History (Updated 08/30/23 @ 14:10 by Elisa House MD) Hypertension COPD (chronic obstructive pulmonary disease) Coronary artery disease Hepatitis C History of bladder cancer Tobacco abuse Lumbar spondylosis Von [place]illebrands disease Hemochromatosis Surgical History H/O colonoscopy History of liver biopsy History of removal of cyst History of tumor History of oral surgery History of section Family History Father No problems noted. Mother Diabetes Brother Hemochromatosis Stomach cancer Sister Hemochromatosis Son In good health Social History Housing: House Alcohol intake: current Alcohol intake frequency: holidays/special occasions only Patient Tobacco Use Status: Current everyday Tobacco user Tobacco use type: Cigarette Cigarette Packs Per Day: 0.5 Cigarettes Per Day: 8 e-Cigarette/Vaping Use: Never Used Second Hand Smoke Exposure: No service: No Current occupational status: retired Cognitive needs: No Hearing needs: No Vision needs: Yes Questionnaire PHQ-9 Over the last 2 weeks, how often have you been bothered by any of the following problems? 1. Little interest or pleasure in doing things: nearly every day 2. Feeling down, depressed, or hopeless: nearly every day 3. Trouble falling or staying asleep, or sleeping too much: more than half the days 4. Feeling tired or having little energy: more than half the days 5. Poor appetite or overeating: not at all 6. Feeling bad about yourself - or that you are a failure or have let yourself or your family down: not at all 7. Trouble concentrating on things, such as reading the newspaper or watching television: not at all 8. Moving or speaking so slowly that other people could have noticed. Or the opposite - being so fidgety or restless that you have been moving around a lot more than usual: not at all 9. Thoughts that you would be better off or of hurting yourself in some way: not at all Total score: 10 Depression Screening Interpretation: Negative Depression Screening Done: Yes 68516 - PHQ-9 Billing: Yes Source: Developed by Drs. Irineo Rao, Demian Russ and colleagues, with an educational gabbie from [employer]. Thrive Questionnaire Date Thrive assessed: 03/11/23 AUDIT C Alcohol Use Questionnaire (AUDIT-C) 1. How often do you have a drink containing alcohol?: 2-4 times a month 2. How many drinks containing alcohol do you have on a typical day when you are drinking?: 1 or 2 3. How often do you have six or more drinks on one occasion?: Never Total Score: 2 Score Reviewed/Action Taken: No STEPHANIE-7 AMB Questionnaire STEPHANIE-7 Date STEPHANIE - 7 assessed: 03/11/23 Source: Developed by Drs. Irineo Rao, Demian Russ and colleagues, with an educational gabbie from [employer]. Physical exam (Primary Care) Vital Signs: Last Vital Signs Pulse 92 09/29/23 09:27 BP 134/76 09/29/23 09:27 Pulse Ox 95 09/29/23 09:27 Oxygen Delivery Method Room Air 09/29/23 09:27 BMI result Body Mass Index 25.2 Tobacco/Smoking Status: Tobacco use Status Tobacco use date assessed 03/11/23 09/29/23 09:31 Patient Tobacco Use Status Current everyday Tobacco 09/29/23 09:31 Tobacco use type Cigarette 09/29/23 09:31 e-Cigarette/Vaping Use Never Used 09/29/23 09:31 PHQ-9: PHQ-9 Score PHQ-9: Total score 10 09/29/23 10:03 Depression Screening Interpretation: Negative Thrive Assessment: Date of Thrive Assessment Date Thrive assessed 03/11/23 09/29/23 09:31 Const General: alert; No acute distress Eyes Conjunctivae: conjunctivae normal Resp Auscultation: clear to auscultation bilaterally Cardio Rate: regular rate Rhythm: regular rhythm GI Inspection: Yes normal to inspection Extrem General: Yes normal to inspection and No edema Office Procedures Flu Questionnaire Does the patient have a severe egg allergy?: No Does the patient have severe life threatening allergies?: No Does the patient have a fever or illness today?: No Has the patient ever had Guillain-[place] Syndrome?: No Has the patient ever had any past reaction to a flu shot?: No Immunizations flu vacc [id number] 6mos up(PF) 60 mcg(15 mcgx4)/0.5 mL IM syringe Performing Provider: Elisa House MD Performing Location: [facility] Administered by: Carolee Ernst CMA on 09/29/23 10:20 Dose Route Admin Location Dispensed Lot Number Expiration Date [employer] 0.5 mL IM Left Deltoid 0.5 mL [id number] 05/20/24 [id number] [employer] VIS Given Date VIS Provided VIS Publication Date 09/29/23 Single Vaccine 21 Eligibility Eligibility Date Funding Source Not VFC Eligible 09/29/23 Private Assessment and Plan Assessment & Plan (1) Tobacco abuse: Comment: CT scan March 2016, 2017 Dr. Castañeda, November 2022 Code(s): Z72.0 - Tobacco use Plan: Patient is strongly advised to stop smoking! (2) Coronary artery disease: Code(s): I25.10 - Atherosclerotic heart disease of [place] coronary artery without angina pectoris Qualifiers: Associated angina: without angina Coronary Disease-Associated Artery/Lesion type: [place] artery [place] vs. transplanted heart: [place] heart Qualified Code(s): I25.10 - Atherosclerotic heart disease of [place] coronary artery without angina pectoris Plan: Patient is strongly advised to stop smoking! Control the cholesterol, weight, blood pressure, diabetes continue with aspirin 81 mg once a day (3) COPD (chronic obstructive pulmonary disease): Code(s): J44.9 - Chronic obstructive pulmonary disease, unspecified Qualifiers: COPD type: emphysema Emphysema type: panlobular Qualified Code(s): J43.1 - Panlobular emphysema Plan: Patient is advised strongly really to stop smoking! Continue with the inhalers (4) Impaired glucose tolerance: Code(s): R73.02 - Impaired glucose tolerance (oral) Plan: Decrease the amount of carbohydrate intake, pasta, bread, rice and potatoes are all sugar and that is aside from all the sweet stuff, remember that fruits are good but they are Sweet also. Hemoglobin A1c is in the normal range but the fasting blood sugar is very high (5) Hypercholesterolemia: Code(s): E78.00 - Pure hypercholesterolemia, unspecified Plan: Avoid fried foods, chicken skin, eggs, butter margarine, pastries and meat. Be it pork or beef they have a lot of cholesterol LDL goal of less than 130 and triglyceride of less than 150. Patient on simvastatin 20 mg (6) History of bladder cancer: Comment: June 2013 recurrence 2013 bladder biopsy December 10- Code(s): Z85.51 - Personal history of malignant neoplasm of bladder Plan: Continue to follow-up with Urology (7) Generalized anxiety disorder: Comment: Declined counseling or medication Code(s): F41.1 - Generalized anxiety disorder Plan: Continue with medication and therapy (8) Hypertension: Code(s): I10 - Essential (primary) hypertension Plan: Continue with blood pressure medication. Decrease salt intake and exercise patient takes hydrochlorothiazide 25 mg once a day but concern on hypokalemia Orders: Orders Influenza [id number] Immunization Today Z23 - Encounter for immunization Medications: New metoprolol succinate ER 25 mg PO DAILY 30 tabs 3RF I10 - Essential (primary) hypertension Changed From alprazolam 0.25 mg PO BID PRN 45 tabs 1RF anxiety F41.1 - Generalized anxiety disorder To alprazolam 0.5 mg PO BID PRN 45 tabs 1RF anxiety F41.1 - Generalized anxiety disorder From sertraline 25 mg PO DAILY 30 tabs 3RF F41.1 - Generalized anxiety disorder To sertraline 50 mg PO DAILY 30 tabs 3RF F41.1 - Generalized anxiety disorder Discontinued hydrochlorothiazide Discontinued Reason: Doctor's Order 25 mg PO QAM 30 tabs 3RF I10 - Essential (primary) hypertension Coding Level of Care Code Est Pt Level 4 (91502) Diagnoses Tobacco abuse Z72.0 Coronary artery disease involving [place] coronary artery of [place] heart without angina pectoris I25.10 Associated angina: without angina Coronary Disease-Associated Artery/Lesion type: [place] artery [place] vs. transplanted heart: [place] heart Panlobular emphysema J43.1 COPD type: emphysema Emphysema type: panlobular Impaired glucose tolerance R73.02 Hypercholesterolemia E78.00 History of bladder cancer Z85.51 Generalized anxiety disorder F41.1 Hypertension I10
== END 2023-09-29 10:24 | disposition home or self-care (01) ==
PROVIDERS: PCP Internal Medicine; Visit Provider Internal Medicine
DX: Z72.0 Tobacco use (principal); I25.10 Atherosclerotic heart disease of native coronary artery without angina pectoris; J43.1 Panlobular emphysema; R73.02 Impaired glucose tolerance (oral); E78.00 Pure hypercholesterolemia, unspecified; Z85.51 Personal history of malignant neoplasm of bladder; F41.1 Generalized anxiety disorder; I10 Essential (primary) hypertension; Z23 Encounter for immunization
CPT/HCPCS: 90471; 90686; 99214

== ENCOUNTER 2024-02-16 10:13 | Outpatient (REF) | payer MEDICARE, SELFPAY ==
--- NOTE | ~2024-02-16 | CT_ITS ---
EXAMINATION: CT CHEST SCREENING CLINICAL INFORMATION: Current smoker. One pack per day with history of 51 pack years. COMPARISON: Multiple prior CT screening studies most recently 12/10/2022. TECHNIQUE: Multidetector volumetric CT imaging of the chest is performed without contrast using low dose technique. Additional 2D coronal and sagittal reformatted images and axial 3D maximum intensity projection (MIP) images are generated on the CT workstation. This CT examination was performed using dose optimization techniques as appropriate, variously including the following: *Automated exposure control. *Adjustment of mA and/or kV according to patient size (this includes techniques or standardized protocols for targeted exams where dose is matched to indication/reason for exam; i.e. extremities or head). *Use of iterative reconstruction technique. DLP: 87 mGy-cm FINDINGS: LUNGS: Some small pulmonary nodules are seen, none larger than 4 mm (see ralph images). Mild emphysematous changes are present. Mild peribronchial thickening is seen. The lungs are otherwise clear with no evidence of inflammation or new or worrisome nodules. MEDIASTINUM: The mediastinum is normal. CORONARY ARTERY CALCIFICATION: Moderate. PLEURA: There is no pleural effusion. No pleural mass or thickening. AXILLA: No lymphadenopathy. UPPER ABDOMEN: Fat density right adrenal mass measuring 2 cm is unchanged consistent with a benign adenoma. OSSEOUS STRUCTURES: Unremarkable. CT/CT lung screening IMPRESSION: Stable small pulmonary micronodules with no evidence of suggest malignancy. ASSESSMENT: Lung-RADS category 2: Benign. RECOMMENDATION: Routine annual low-dose CT screening in 12 months.
== END 2024-02-16 10:14 | disposition home or self-care (01) ==
LOC: HO.CT 10:13
PROVIDERS: PCP Internal Medicine; Visit Provider Nurse Practitioner Family
DX: Z12.2 Encounter for screening for malignant neoplasm of respiratory organs (principal); F17.210 Nicotine dependence, cigarettes, uncomplicated
CPT/HCPCS: 71271

== ENCOUNTER 2024-06-04 11:10 | Outpatient (AMB) | payer MEDICARE, SELFPAY ==
[2024-06-04 11:18] VITALS: BP 130/72; PULSE 50; O2SAT 95; BMI 25.7
--- NOTE | 2024-06-04 11:18 | MHC.PC.OV ---
Vital Signs 06/04/24 11:18 Height 5 ft 6 in Weight 159 lb BMI 25.7 BP 130/72 Blood Pressure Location Lt brachial Position Sitting Pulse 50 Pulse Source Pulse Oximeter Pulse Oximetry (%) 95 Oxygen Delivery Method Room Air Intake Visit Reasons: Hypertension F/U Allergies erythromycin base Allergy (Severe, Verified 06/04/24 11:18) Anaphylaxis Penicillins Allergy (Severe, Verified 06/04/24 11:18) Unknown Sulfa (Sulfonamide Antibiotics) Allergy (Intermediate, Verified 06/04/24 11:18) allergic reaction fentanyl Allergy (Unknown, Verified 06/04/24 11:18) vomiting morphine Allergy (Unknown, Verified 06/04/24 11:18) Unknown oxycodone [From Percodan] Allergy (Unknown, Verified 06/04/24 11:18) Unknown varenicline [From CHANTIX] Allergy (Unknown, Verified 06/04/24 11:18) NAUSEA & VOMITING ANTIBIOTICS Allergy (Unknown, Uncoded 06/04/24 11:18) NAUSEA & VOMITING Medication List - Last Reconciled 06/04/24 by Elisa House MD albuterol sulfate 90 mcg/actuation (ProAir HFA) 2 puffs inhalation Q4-6H PRN alprazolam 0.5 mg PO BID PRN aspirin 81 mg PO DAILY ibuprofen 200 mg PO Q6H PRN nicotine 1 patch transdermal DAILY polyethylene glycol 3350 (Miralax) 238 grams PO ONCE simvastatin 20 mg PO BEDTIME 90 days tramadol 50 mg PO DAILY PRN Tobacco use date assessed: 06/04/24 Fall risk assessment: No Falls in past year Last assessed Fall Risk: 06/04/24 Dental Screening Dental Screen Date: 06/04/24 Did you have a dental visit in the last 12 months?: Yes Did you have a dental problem in the last 6 months where you did not have access to dental care?: No Was dental information given to patient?: Patient has dentist HPI Hypertension F/U HPI Details 74-year-old female smoker with coronary artery disease COPD impaired glucose tolerance hypercholesterolemia history of bladder cancer generalized anxiety disorder and hypertension last seen in 09/2023. Patient's last colonoscopy was 2012 and is due, mammogram is up-to-date. With a history of smoking patient has a CT scan February 2024 noted stable small pulmonary nodules no evidence of malignancy. for the bladder cnacer - will see Dr. Ya [facility] Medical History (Updated 06/04/24 @ 11:51 by Elisa House MD) Hypertension COPD (chronic obstructive pulmonary disease) Coronary artery disease Hepatitis C History of bladder cancer Tobacco abuse Lumbar spondylosis [place] disease Hemochromatosis Surgical History (System 12/07/23 @ 13:22 by Karma Ponce) H/O colonoscopy History of liver biopsy History of removal of cyst History of tumor History of oral surgery History of section Family History Father No problems noted. Mother Diabetes Brother Hemochromatosis Stomach cancer Sister Hemochromatosis Son In good health Social History (System 12/07/23 @ 13:22 by Karma Ponce) Housing: House Alcohol intake: current Alcohol intake frequency: holidays/special occasions only Patient Tobacco Use Status: Former Tobacco user Tobacco use type: Cigarette Cigarette Packs Per Day: 0.5 Cigarettes Per Day: 8 e-Cigarette/Vaping Use: Never Used Second Hand Smoke Exposure: No service: No Current occupational status: retired Cognitive needs: No Hearing needs: No Vision needs: Yes Questionnaire PHQ-9 Over the last 2 weeks, how often have you been bothered by any of the following problems? 1. Little interest or pleasure in doing things: nearly every day 2. Feeling down, depressed, or hopeless: nearly every day 3. Trouble falling or staying asleep, or sleeping too much: more than half the days 4. Feeling tired or having little energy: more than half the days 5. Poor appetite or overeating: not at all 6. Feeling bad about yourself - or that you are a failure or have let yourself or your family down: not at all 7. Trouble concentrating on things, such as reading the newspaper or watching television: not at all 8. Moving or speaking so slowly that other people could have noticed. Or the opposite - being so fidgety or restless that you have been moving around a lot more than usual: not at all 9. Thoughts that you would be better off or of hurting yourself in some way: not at all Total score: 10 Depression Screening Interpretation: Negative Depression Screening Done: Yes [id number] - PHQ-9 Billing: Yes Source: Developed by Terese DesaiW. Timbo, Demian Ocasio and colleagues, with an educational gabbie from [employer]. Thrive Questionnaire Date Thrive assessed: 06/04/24 I am a: Patient What is your living situation today?: I have a steady place to live Within the past 12 months, did the food you bought not last and you didn't have the money to get more?: Never true Within the past 12 months, did you worry whether your food would run out before you got money to buy more?: Never true Do you have trouble paying for medicines?: No Do you have trouble getting transportation to medical appointments?: No Do you have trouble paying your heating and electricity bill?: No Do you have trouble taking care of your child, family member or friend?: No Do you have trouble with day-to-day activities such as bathing, preparing meals, shopping, managing finances, etc.?: No Are you currently unemployed and looking for a job?: No Are you interested in more education?: No Currently or been in a relationship where the following occur: No concerns reported THRIVE Score: 0 AUDIT C Alcohol Use Questionnaire (AUDIT-C) 1. How often do you have a drink containing alcohol?: 2-4 times a month 2. How many drinks containing alcohol do you have on a typical day when you are drinking?: 1 or 2 3. How often do you have six or more drinks on one occasion?: Never Total Score: 2 Score Reviewed/Action Taken: No STEPHANIE-7 AMB Questionnaire STEPHANIE-7 Date STEPHANIE - 7 assessed: 06/04/24 Feeling nervous, anxious, or on edge: 1 = Several days Not being able to stop or control worryin = Several days Worrying too much about different things: 1 = Several days Trouble relaxin = Not at all Being so restless that it is hard to sit still: 0 = Not at all Becoming easily annoyed or irritable: 0 = Not at all Feeling afraid as if something awful might happen: 0 = Not at all Total STEPHANEI-7 score (0-4 normal; 5-9 mild; 10-14 moderate; 15-21 severe): 3 Source: Developed by Terese Desai Kurt Kroenke and colleagues, with an educational gabbie from [employer]. Physical exam (Primary Care) Vital Signs: Last Vital Signs Pulse 50 06/04/24 11:18 BP 130/72 06/04/24 11:18 Pulse Ox 95 06/04/24 11:18 Oxygen Delivery Method Room Air 06/04/24 11:18 BMI result Body Mass Index 25.7 Tobacco/Smoking Status: Tobacco use Status Tobacco use date assessed 06/04/24 06/04/24 11:23 Patient Tobacco Use Status Former Tobacco user 06/04/24 11:23 Tobacco use type Cigarette 06/04/24 11:23 e-Cigarette/Vaping Use Never Used 06/04/24 11:23 PHQ-9: PHQ-9 Score PHQ-9: Total score 10 06/04/24 11:39 Depression Screening Interpretation: Negative Thrive Assessment: Date of Thrive Assessment Date Thrive assessed 06/04/24 06/04/24 11:23 Currently or been in a relationship where the following occur: No concerns reported Const General: alert; No acute distress Eyes Conjunctivae: conjunctivae normal Resp Auscultation: clear to auscultation bilaterally Cardio Rate: regular rate Rhythm: regular rhythm GI Inspection: Yes normal to inspection Extrem General: Yes normal to inspection and No edema Assessment and Plan Assessment & Plan (1) Tobacco abuse: Comment: CT scan March 20162017 Dr. Castañeda, November 2022, 02/2024 stopped,04/2024 Code(s): Z72.0 - Tobacco use Plan: Patient is strongly advised to stop smoking. Patient enrolled in the lung cancer screening program February 2024. On a patch right now- stopped 27 days ago (04/2024) (2) Coronary artery disease: Code(s): I25.10 - Atherosclerotic heart disease of [place] coronary artery without angina pectoris Qualifiers: Associated angina: without angina Coronary Disease-Associated Artery/Lesion type: [place] artery [place] vs. transplanted heart: [place] heart Qualified Code(s): I25.10 - Atherosclerotic heart disease of [place] coronary artery without angina pectoris Plan: Control the cholesterol, weight, blood pressure, diabetes continue with aspirin 81 mg once a day (3) COPD (chronic obstructive pulmonary disease): Code(s): J44.9 - Chronic obstructive pulmonary disease, unspecified Qualifiers: COPD type: emphysema Emphysema type: panlobular Qualified Code(s): J43.1 - Panlobular emphysema Plan: Stop smoking! Continue with the inhaler (4) Impaired glucose tolerance: Code(s): R73.02 - Impaired glucose tolerance (oral) Plan: Decrease the amount of carbohydrate intake, pasta, bread, rice and potatoes are all sugar and that is aside from all the sweet stuff, remember that fruits are good but they are Sweet also. Will need retesting (5) Hypercholesterolemia: Code(s): E78.00 - Pure hypercholesterolemia, unspecified Plan: Avoid fried foods, chicken skin, eggs, butter margarine, pastries and meat. Be it pork or beef they have a lot of cholesterol LDL goal of less than 70 and triglyceride of less than 150 (6) History of bladder cancer: Comment: June 2013 recurrence 2013 bladder biopsy December 10- Code(s): Z85.51 - Personal history of malignant neoplasm of bladder Plan: Continue to follow-up with urology Dr. Ya (7) Generalized anxiety disorder: Comment: Declined counseling or medication, decline counselling 05/2024 Code(s): F41.1 - Generalized anxiety disorder Plan: Continue with present medication as needed (8) Colon cancer screening: Code(s): Z12.11 - Encounter for screening for malignant neoplasm of colon Plan: Patient is reminded about colonoscopy (9) Lumbar degenerative disc disease: Code(s): M51.36 - Other intervertebral disc degeneration, lumbar region Orders: Orders Lipid Panel Today E78.00 - Pure hypercholesterolemia, unspecified, R73.02 - Impaired glucose tolerance (oral) Vitamin B12 and Folate Today R73.02 - Impaired glucose tolerance (oral) Complete Blood Count Auto Diff Today R73.02 - Impaired glucose tolerance (oral) Comprehensive Met. Panel Today R73.02 - Impaired glucose tolerance (oral) Hemoglobin A1c Today R73.02 - Impaired glucose tolerance (oral) Free T4 (Free Thyroxine) Today R73.02 - Impaired glucose tolerance (oral) Thyroid Stimulating Hormone Today R73.02 - Impaired glucose tolerance (oral) Vitamin D 25-OH Total Today R73.02 - Impaired glucose tolerance (oral) Medications: New nicotine 1 patch transdermal DAILY 28 ea 1RF Z72.0 - Tobacco use Refilled alprazolam 0.5 mg PO BID PRN 45 tabs 1RF anxiety F41.1 - Generalized anxiety disorder simvastatin 20 mg PO BEDTIME 90 tabs 1RF 90 days E78.00 - Pure hypercholesterolemia, unspecified, I25.10 - Atherosclerotic heart disease of [place] coronary artery without angina pectoris tramadol 50 mg PO DAILY PRN 30 tabs 1RF pain M51.36 - Other intervertebral disc degeneration, lumbar region Coding Level of Care Code Est Pt Level 4 (78005) Diagnoses Tobacco abuse Z72.0 Coronary artery disease involving [place] coronary artery of [place] heart without angina pectoris I25.10 Associated angina: without angina Coronary Disease-Associated Artery/Lesion type: [place] artery [place] vs. transplanted heart: [place] heart Panlobular emphysema J43.1 COPD type: emphysema Emphysema type: panlobular Impaired glucose tolerance R73.02 Hypercholesterolemia E78.00 History of bladder cancer Z85.51 Generalized anxiety disorder F41.1 Colon cancer screening Z12.11 Lumbar degenerative disc disease M51.36
== END 2024-06-04 11:52 | disposition home or self-care (01) ==
PROVIDERS: PCP Internal Medicine; Visit Provider Internal Medicine
DX: Z72.0 Tobacco use (principal); I25.10 Atherosclerotic heart disease of native coronary artery without angina pectoris; J43.1 Panlobular emphysema; R73.02 Impaired glucose tolerance (oral); E78.00 Pure hypercholesterolemia, unspecified; Z85.51 Personal history of malignant neoplasm of bladder; F41.1 Generalized anxiety disorder; Z12.11 Encounter for screening for malignant neoplasm of colon; M51.36 Other intervertebral disc degeneration, lumbar region
CPT/HCPCS: 99214

== ENCOUNTER 2024-09-10 07:48 | Outpatient (AMB) | payer OTHER, SELFPAY ==
[2024-09-10 08:01] VITALS: BP 130/98; PULSE 79; O2SAT 97; BMI 25.7
--- NOTE | 2024-09-10 08:01 | A.OFFPC_ITS ---
Vital Signs 09/10/24 08:01 09/10/24 08:27 Height 5 ft 6 in Weight 159 lb BMI 25.7 BP 130/98 H 132/82 Blood Pressure Location Lt brachial Lt brachial Position Sitting Sitting Pulse 79 Pulse Source Pulse Oximeter Pulse Oximetry (%) 97 Oxygen Delivery Method Room Air Intake Visit Reasons: 3 Month F/U Rural Health Consultant Required: No Allergies erythromycin base Allergy (Severe, Verified 09/10/24 08:05) Anaphylaxis Penicillins Allergy (Severe, Verified 09/10/24 08:05) Unknown Sulfa (Sulfonamide Antibiotics) Allergy (Intermediate, Verified 09/10/24 08:05) allergic reaction fentanyl Allergy (Unknown, Verified 09/10/24 08:05) vomiting morphine Allergy (Unknown, Verified 09/10/24 08:05) Unknown oxycodone [From Percodan] Allergy (Unknown, Verified 09/10/24 08:05) Unknown varenicline [From CHANTIX] Allergy (Unknown, Verified 09/10/24 08:05) NAUSEA & VOMITING ANTIBIOTICS Allergy (Unknown, Uncoded 09/10/24 08:05) NAUSEA & VOMITING Medication List - Last Reconciled 09/10/24 by Renetta Wilcox PA-C albuterol sulfate 90 mcg/actuation (ProAir HFA) 2 puffs inhalation Q4-6H PRN alprazolam 0.5 mg PO BID PRN aspirin 81 mg PO DAILY ibuprofen 200 mg PO Q6H PRN nicotine 1 patch transdermal DAILY polyethylene glycol 3350 (Miralax) 238 grams PO ONCE simvastatin 20 mg PO BEDTIME 90 days tramadol 50 mg PO .QD PRN Tobacco use date assessed: 06/04/24 Fall risk assessment: No Falls in past year Last assessed Fall Risk: 09/10/24 Dental Screening Dental Screen Date: 06/04/24 HPI 3 Month F/U HPI Details 74-year-old female smoker with coronary artery disease COPD impaired glucose tolerance hypercholesterolemia history of bladder cancer generalized anxiety disorder and hypertension last seen by Dr. House May 2024 coming in for follow up. Patient states she began having abdominal pain and cramping along with nonbloody diarrhea. Since she has had loose bowel movements with no more diarrhea and no blood in the stool. Denies any nausea or vomiting but continues to have mild left lower quadrant abdominal pain and cramping. The pain has been improving since . Pain is exacerbated by food and will typically have pain 12 hours after a meal. She also mentioned she began having a toothache on the left lower molar and has had issues with this tooth in the past. She continues to smoke cigarettes on and off and does not use her inhaler regularly. [facility] Medical History (Updated 09/10/24 @ 10:01 by Renetta Wilcox PA-C) Hypertension COPD (chronic obstructive pulmonary disease) Coronary artery disease Hepatitis C History of bladder cancer Tobacco abuse Lumbar spondylosis [place] disease Hemochromatosis Surgical History (System 12/07/23 @ 13:22 by Karma Ponce) H/O colonoscopy History of liver biopsy History of removal of cyst History of tumor History of oral surgery History of section Family History Father No problems noted. Mother Diabetes Brother Hemochromatosis Stomach cancer Sister Hemochromatosis Son In good health Social History (System 12/07/23 @ 13:22 by Karma Ponce) Housing: House Alcohol intake: current Alcohol intake frequency: holidays/special occasions only Patient Tobacco Use Status: Current someday Tobacco user Tobacco use type: Cigarette Cigarette Packs Per Day: 0.5 Cigarettes Per Day: 8 e-Cigarette/Vaping Use: Never Used Second Hand Smoke Exposure: No service: No Current occupational status: retired Cognitive needs: No Hearing needs: No Vision needs: Yes Questionnaire Thrive Questionnaire Date Thrive assessed: 06/04/24 AUDIT C Alcohol Use Questionnaire (AUDIT-C) 1. How often do you have a drink containing alcohol?: 2-4 times a month 2. How many drinks containing alcohol do you have on a typical day when you are drinking?: 1 or 2 3. How often do you have six or more drinks on one occasion?: Never Total Score: 2 Score Reviewed/Action Taken: No STEPHANIE-7 AMB Questionnaire STEPHANIE-7 Date STEPHANIE - 7 assessed: 06/04/24 Source: Developed by Drs. Irineo Rao, Terese Izquierdo, Demian Ocasio and colleagues, with an educational gabbie from [employer]. Review of Systems Const Denies body aches, Denies chills, Denies fever(s), Denies headache(s) and Denies poor appetite Eyes Reports no additional complaints ENT Denies dysphagia, Denies dizziness, Denies headache(s) and Denies odynophagia Card Denies chest pain, Denies syncope, Denies lightheadedness and Denies dyspnea Resp Denies cough and Denies dyspnea GI Reports abdominal pain, Denies constipation, Denies dysphagia, Reports diarrhea, Reports nausea, Denies odynophagia and Denies vomiting Reports no additional complaints Musc Reports no additional complaints and Denies abnormal gait Skin/Breast Reports system reviewed and no additional complaints, except as documented Neuro Denies abnormal gait, Denies dizziness, Denies syncope and Denies headache(s) Psych Reports no additional complaints Physical exam (Primary Care) Vital Signs: Last Vital Signs Pulse 79 09/10/24 08:01 BP 132/82 09/10/24 08:27 Pulse Ox 97 09/10/24 08:01 Oxygen Delivery Method Room Air 09/10/24 08:01 BMI result Body Mass Index 25.7 Tobacco/Smoking Status: Tobacco use Status Tobacco use date assessed 06/04/24 09/10/24 08:02 Patient Tobacco Use Status Current someday Tobacco 09/10/24 08:09 Tobacco use type Cigarette 09/10/24 08:02 e-Cigarette/Vaping Use Never Used 09/10/24 08:02 Thrive Assessment: Date of Thrive Assessment Date Thrive assessed 06/04/24 09/10/24 08:02 Forms completed: Comfort care/DNR Const General: cooperative, healthy appearing, comfortable and no acute distress Orientation/consciousness: patient oriented x3 HENMT Head: Yes normocephalic Ears: hearing grossly normal bilaterally General nose exam: Normal external nose present Eyes General: appearance normal, both eyes and all related structures Conjunctivae: conjunctivae normal Neck Neck: Yes full ROM and Yes no lymphadenopathy Resp Effort & Inspection: normal respiratory effort Auscultation: clear to auscultation bilaterally, no crackles, no rales, no rhonchi and no wheezes Cardio Rate: regular rate Rhythm: regular rhythm GI Palpation (GI): Soft to palpation, not firm, Tenderness to palpation present (GI) in the LLQ, no guarding, not rigid, no masses and No Rebound tenderness present Skin General skin exam: no rashes or lesions noted Neuro General: patient oriented x3 Gait exam (Neuro): Normal gait present Extrem General: Yes normal to inspection, Yes full ROM and No edema Psych Affect: normal affect Attitude: cooperative Insight: Good insight present (Psych) Judgement: Good judgement present (Psych) Office Procedures Flu Questionnaire Does the patient have a severe egg allergy?: No Does the patient have severe life threatening allergies?: No Does the patient have a fever or illness today?: No Has the patient ever had Guillain-[place] Syndrome?: No Has the patient ever had any past reaction to a flu shot?: No Immunizations Fluarix Triv [id number] (PF) 45 mcg (15 mcg x 3)/0.5 mL IM syringe Performing Provider: Renetta Wilcox PA-C Performing [facility] [place] [facility] Administered by: MAIDA Silver on 09/10/24 08:39 Dose Route Admin Location Dispensed Lot Number Expiration Date [employer] 0.5 mL IM Left Deltoid 0.5 mL [id number] 05/20/25 [id number] [employer] VIS Given Date VIS Provided VIS Publication Date 09/10/24 Single Vaccine 21 Eligibility Eligibility Date Funding Source Not [facility] Eligible 09/10/24 Private Coding Level of Care Code Est Pt Level 4 (93244) Diagnoses Hypertension I10 Hypercholesterolemia E78.00 Tobacco abuse Z72.0 Panlobular emphysema J43.1 COPD type: emphysema Emphysema type: panlobular Impaired glucose tolerance R73.02 Abdominal pain R10.9 Toothache K08.89 Assessment & Plan Assessment & Plan (1) Hypertension: Code(s): I10 - Essential (primary) hypertension Category: Medical Plan: Continue on current blood pressure medication. Avoid salt intake and encourage healthy diet and regular exercise. (2) Hypercholesterolemia: Code(s): E78.00 - Pure hypercholesterolemia, unspecified Category: Medical Plan: Avoid foods that are high in cholesterol such as red meat, fried foods, eggs and baked goods. Triglyceride goal of less than 150 and LDL goal of less than 100. Continue on simvastatin 20 mg reminded about blood work. (3) Tobacco abuse: Comment: CT scan March 2016, 2017 Dr. Castañeda, November 2022, 02/2024 stopped,04/2024 Code(s): Z72.0 - Tobacco use Category: Medical Plan: Smoking cigarettes and the use of tobacco can be harmful. We discussed the importance of stopping and options to aid in smoking cessation. (4) COPD (chronic obstructive pulmonary disease): Code(s): J44.9 - Chronic obstructive pulmonary disease, unspecified Category: Medical Qualifiers: COPD type: emphysema Emphysema type: panlobular Qualified Code(s): J43.1 - Panlobular emphysema Plan: Smoking cigarettes and the use of tobacco can be harmful. We discussed the importance of stopping and options to aid in smoking cessation. COPD stable on current medication regimen. Avoid triggers such as allergies. (5) Impaired glucose tolerance: Code(s): R73.02 - Impaired glucose tolerance (oral) Category: Medical Plan: Decrease the amount of carbohydrates such as pasta, bread, rice, and potatoes and limit the amount of sweets. Although fruits are generally healthy they should be eaten in moderation as they are still high in sugar. Hemoglobin A1c goal of less than 7%. Not currently on medical management. Reminded about blood work. (6) Abdominal pain: Code(s): R10.9 - Unspecified abdominal pain Category: Medical Plan: Patient having left lower quadrant pain with tenderness to palpation on exam. No evidence of acute abdomen at this time and no indication for imaging. Advised patient to continue monitor symptoms and reviewed red flag symptoms of abdominal pain and when to present for re-evaluation. Rx sent for Dicyclomine for stomach cramping. (7) Toothache: Code(s): K08.89 - Other specified disorders of teeth and supporting structures Category: Medical Plan: Patient has concerns of toothache and possible cracking without fevers. Given antibiotic to cover for possible infection and advised for urgent dental appt. Plan This note was constructed using voice recognition software. While every effort has been made to ensure accuracy and direct marketing manager, still areas may have been included sometimes these areas may affect the content or meeting of the given symptoms. Total time spent caring for the patient today was 30 minutes. This includes time spent before the visit reviewing the chart, time spent during the visit, and time spent after the visit and documentation. Orders: Orders Influenza [id number] Immunization Today Z23 - Encounter for immunization UA CC w/rflx Micro + Cult Today R35.89 - Other polyuria Medications: New dicyclomine 10 mg PO BID PRN 14 caps 0RF abdominal pain cephalexin 500 mg PO Q12H 10 caps 0RF 5 days
[2024-09-10 08:27] VITALS: BP 132/82
== END 2024-09-10 08:32 | disposition home or self-care (01) ==
PROVIDERS: PCP Internal Medicine
DX: I10 Essential (primary) hypertension (principal); E78.00 Pure hypercholesterolemia, unspecified; Z72.0 Tobacco use; J43.1 Panlobular emphysema; R73.02 Impaired glucose tolerance (oral); R10.9 Unspecified abdominal pain; K08.89 Other specified disorders of teeth and supporting structures; Z23 Encounter for immunization

== ENCOUNTER → 2024-09-10 07:48 | Outpatient (BNVA) | payer OTHER, SELFPAY | PROVIDERS: PCP Internal Medicine | DX: I10 Essential (primary) hypertension (principal); E78.00 Pure hypercholesterolemia, unspecified; J43.1 Panlobular emphysema; R73.02 Impaired glucose tolerance (oral); R10.32 Left lower quadrant pain; K08.89 Other specified disorders of teeth and supporting structures; Z72.0 Tobacco use; Z79.899 Other long term (current) drug therapy; Z23 Encounter for immunization | CPT/HCPCS: 90471; 90656 ==

== ENCOUNTER 2024-09-10 08:52 | Outpatient (REF) | payer OTHER, SELFPAY ==
[2024-09-10 10:42] LABS: MANUAL DIFF FLAG NO
[2024-09-10 10:47] LABS: Basophils Percent Auto 0.4 % (0-2); Eosinophils Absolute Auto 0.2 X10*3/uL (0.0-0.4); Eosinophils Percent Auto 2.3 % (0-4); Hemoglobin 15.2 g/dl (12.0-16.0); Imm Gran Abs Auto 0.02 X10*3/uL (0.00-0.03); Imm Gran Pct Auto 0.2 % (0.0-0.4); Lymphocytes Absolute Auto 3.1 X10*3/uL (1.2-4.9); Lymphocytes Percent Auto 34.2 % (20-40); Mean Corpuscular Hemoglobin 30.6 pg (27.0-33.0); Mean Corpuscular Volume 92.7 fL (80.0-98.0); Mean Platelet Volume 9.2 fL (9.4-12.3); Monocytes Percent Auto 10.8 % (2-11); Neutrophils Absolute Auto 4.7 x10*3/uL (2.0-8.3); Neutrophils Percent Auto 52.1 % (45-73); Platelet Count 303 X10*3/uL (160-400); Red Blood Count 4.96 X10*6/uL (4.20-5.50); White Blood Count 9.1 X10*3/uL (4.8-10.8)
[2024-09-10 11:17] LABS: Estimated Average Glucose 94 mg/dL; Hemoglobin A1C 116.1103 umol/L; Hemoglobin A1c % 4.9 % (<6.0); Total Hemoglobin (HGBA1C) 3846.8539 umol/L
[2024-09-10 11:28] LABS: Alanine Aminotransferase 15 U/L (0-31); Albumin Level 4.5 g/dL (3.5-5.0); Alkaline Phosphatase 60 U/L (39-117); Anion Gap 12 (12-20); Aspartate Amino Transferase 21 U/L (5-31); Bilirubin Total 0.9 mg/dL (0.0-1.0); Blood Urea Nitrogen 25 mg/dL (9-16); Calcium 10.1 mg/dL (8.4-10.2); Carbon Dioxide 25 mmol/L (22-29); Chloride 109 mmol/L (96-108); Cholesterol 190 mg/dL (<200); Estimated Glomerular Filt Rate 60; Glucose Random 110 mg/dL (60-115); HDL Cholesterol 56 mg/dL (>40); LDL Cholesterol Calculated 112 mg/dL (<100); Potassium 3.9 mmol/L (3.3-5.1); Sodium 142 mmol/L (135-145); Total Protein 7.5 g/dL (6.5-8.0); Triglycerides 112 mg/dL (<150)
[2024-09-10 11:53] LABS: Folate 10.9 ng/mL (> or = 4.0); Vitamin B12 531 pg/mL (200-900)
[2024-09-10 11:55] LABS: Free T4 (Free Thyroxine) 1.14 ng/dL (0.71-1.85); Thyroid Stimulating Hormone 1.13 uIU/mL (0.32-4.0); Vitamin D 25-OH Total 22.3 ng/mL (>30)
== END 2024-09-10 08:53 | disposition home or self-care (01) ==
LOC: HO.10HDL 08:52
PROVIDERS: Visit Provider Internal Medicine
DX: E78.00 Pure hypercholesterolemia, unspecified (principal); R73.02 Impaired glucose tolerance (oral)
CPT/HCPCS: 36415; 80053; 80061; 82306; 82607; 82746; 83036; 84439; 84443; 85025

== ENCOUNTER 2025-04-23 08:09 | Emergency (ER) | payer OTHER, MEDICARE, MEDICAID, SELFPAY ==
--- NOTE | ~2025-04-23 | XR_ITS ---
EXAMINATION: XR CHEST 2 VIEWS HISTORY: back pain, rib pain COMPARISON: Comparison is made with the prior examination dated 10/19/2006. FINDINGS: PA and lateral views of the chest are submitted. The lungs are hyperinflated, consistent with COPD. The lungs are clear. There is no pleural effusion, pneumothorax, or pulmonary vascular congestion. The heart is normal in size. The aorta is tortuous and calcified. There is degenerative disc disease of the spine. XR/XR chest 2V IMPRESSION: COPD. No acute cardiopulmonary abnormality. Electronically signed by: Irineo Vance MD 04/23/2025 09:20 AM EDT
--- NOTE | ~2025-04-23 | CT_ITS ---
EXAMINATION: CT CHEST ANGIOGRAPHY WITH IV CONTRAST INDICATION: R sided posterior chest pain COMPARISON: Comparison is made with the prior examination dated 02/08/2024. TECHNIQUE: Helical CT scan of the chest was performed following administration of intravenous contrast (65 mL Omnipaque 350). The contrast bolus was timed to optimally opacify the pulmonary arteries. Thin sections were obtained through the pulmonary arteries. Coronal and sagittal reformatted images were generated. 3D/MIP reconstructed images are also obtained and reviewed. This CT exam was performed with one or more of the following dose reduction techniques: automated exposure control, adjustment of the mA and/or kV according to patient size, use of iterative reconstruction technique. DLP: 348 mGy-cm CHEST: THYROID: The thyroid gland is unremarkable. PULMONARY ARTERIES: No intraluminal filling defects are identified within the pulmonary arteries to suggest pulmonary emboli. LUNGS: There are scattered 1-2 mm nodules in the right upper lobe (series 5, images 10, 20, and 48), and in the left upper lobe (series 5, image 32). No focal airspace opacities are identified. MEDIASTINUM: There is no mediastinal lymphadenopathy. FELICIANO: There is no hilar lymphadenopathy. CARDIOVASCULATURE: The heart is normal in size. There is no pericardial effusion. The thoracic aorta is normal in caliber. There is mild dilatation of the main pulmonary artery. The diameter is greater than that of the adjacent ascending thoracic aorta. Findings are compatible with pulmonary arterial hypertension. DEGREE OF CORONARY CALCIFICATION: not evaluable, due to dense contrast in the coronary arteries. PLEURA: There is no pleural effusion. No pneumothorax. MAIN AIRWAYS: The mainstem bronchi and proximal branches are patent. AXILLA: There is no axillary lymphadenopathy. UPPER ABDOMEN: The visualized portions of the liver, spleen, and adrenals are unremarkable. Again seen is a 2.9 cm right adrenal mass, previously characterized as an adenoma. BONES AND SOFT TISSUES: Unremarkable. CT/CT angio chest PE protocol IMPRESSION: No evidence of pulmonary emboli. Dilatation of the main pulmonary artery, compatible with pulmonary arterial hypertension. No acute abnormality is seen. Electronically signed by: Irineo Vance MD 04/23/2025 11:28 AM EDT
[2025-04-23 08:28] VITALS: BP 138/110; PULSE 99; RESP 20; TEMP 36.6; O2SAT 96; BMI 25.8
[2025-04-23 08:46] LABS: MANUAL DIFF FLAG NO
[2025-04-23 08:49] LABS: Basophils Percent Auto 0.3 % (0-2); Eosinophils Absolute Auto 0.1 X10*3/uL (0.0-0.4); Eosinophils Percent Auto 1.3 % (0-4); Hematocrit 47.7 % (37.0-47.0); Hemoglobin 16.4 g/dl (12.0-16.0); Imm Gran Abs Auto 0.03 X10*3/uL (0.00-0.03); Imm Gran Pct Auto 0.3 % (0.0-0.4); Lymphocytes Absolute Auto 2.7 X10*3/uL (1.2-4.9); Mean Corpuscular HGB Conc 34.4 g/dl (31.0-35.0); Mean Corpuscular Hemoglobin 30.3 pg (27.0-33.0); Mean Corpuscular Volume 88.2 fL (80.0-98.0); Mean Platelet Volume 8.8 fL (9.4-12.3); Monocytes Absolute Auto 0.8 X10*3/uL (0.1-1.2); Neutrophils Absolute Auto 6.4 x10*3/uL (2.0-8.3); Neutrophils Percent Auto 63.1 % (45-73); Platelet Count 338 X10*3/uL (160-400); Red Blood Count 5.41 X10*6/uL (4.20-5.50); White Blood Count 10.1 X10*3/uL (4.8-10.8)
[2025-04-23 09:06] LABS: Alanine Aminotransferase 15 U/L (0-31); Alkaline Phosphatase 71 U/L (39-117); Anion Gap 13 (12-20); Aspartate Amino Transferase 24 U/L (5-31); Bilirubin Total 1.1 mg/dL (0.0-1.0); Blood Urea Nitrogen 24 mg/dL (9-16); Calcium 9.8 mg/dL (8.4-10.2); Carbon Dioxide 23 mmol/L (22-29); Chloride 108 mmol/L (96-108); Creatinine Clr Calc Pharmacy 52.4; Estimated Glomerular Filt Rate 57; Glucose Random 131 mg/dL (60-115); Sodium 140 mmol/L (135-145); Total Protein 8.4 g/dL (6.5-8.0)
--- NOTE | 2025-04-23 09:29 | ED.GENADULT ---
HPI - General Adult General Chief complaint: General Medical Stated complaint: Back pain R side, nausea Time Seen by Provider: 04/23/25 09:07 Source: patient and RN notes reviewed Mode of arrival: ambulatory Limitations: no limitations History of Present Illness ED Provider: Martha Mckeon PA-C HPI narrative: This is a 75-year-old female, with a past medical history of hypertension, COPD, hepatitis-C, Von Willebrand's disease, hemochromatosis, who presents emergency department with concerns for right-sided back pain for the last 5 days.Patient denies any recent trauma or injury. She states that the right-sided back pain that she is experiencing occurs when she is lying down however states that her symptoms improve when she is sitting upright. She denies any fevers or chills. No chest pain or shortness of breath. She does report she is nauseous, and has had a decreased appetite. Denies history of similar symptoms in the past. Denies any recent travel, surgery, or hospitalizations. She is not on anticoagulation. Denies history of blood clots in the past. Denies any other complaints or concerns at this time. MD complaint: Right-sided back pain Onset (ago): day(s) Radiation: back Severity: moderate Quality: aching Pain Consistency: constant Relieving factors: other (Sitting upright) Exacerbating factors: other (Lying down) Associated symptoms: loss of appetite Treatments prior to arrival: none Related Data Home Medications ?Medication ?Instructions ?Recorded ?Confirmed aspirin 81 mg tablet,delayed 81 mg PO DAILY 03/11/23 09/10/24 release ibuprofen 200 mg capsule 200 mg PO Q6H PRN 06/04/24 09/10/24 Previous Rx's ?Medication ?Instructions ?Recorded albuterol sulfate 90 mcg/actuation 2 puff inhalation Q4-6H PRN 11/09/22 aerosol inhaler (ProAir HFA) shortness of breath or wheezing #8.5 grams polyethylene glycol 3350 17 238 g PO ONCE #238 grams 08/23/23 gram/dose oral powder (Miralax) alprazolam 0.5 mg tablet 0.5 mg PO BID PRN anxiety #45 tabs 06/04/24 nicotine 21 mg/24 hr daily 1 patch transdermal DAILY #28 ea 06/04/24 transdermal patch simvastatin 20 mg tablet 20 mg PO BEDTIME 90 days #90 tabs 06/04/24 tramadol 50 mg tablet 50 mg PO .QD PRN pain #30 tabs 08/15/24 cephalexin 500 mg capsule 500 mg PO Q12H 5 days #10 caps 09/10/24 dicyclomine 10 mg capsule 10 mg PO BID PRN abdominal pain 09/10/24 #14 caps Allergies Allergy/AdvReac Type Severity Reaction Status Date / Time erythromycin base Allergy Severe Anaphylaxis Verified 04/23/25 08:30 Penicillins Allergy Severe Unknown Verified 04/23/25 08:30 Sulfa (Sulfonamide Allergy Intermediate allergic Verified 04/23/25 08:30 Antibiotics) reaction fentanyl Allergy Unknown vomiting Verified 04/23/25 08:30 morphine Allergy Unknown Unknown Verified 04/23/25 08:30 oxycodone [From Percodan] Allergy Unknown Unknown Verified 04/23/25 08:30 varenicline [From CHANTIX] Allergy Unknown NAUSEA & Verified 04/23/25 08:30 VOMITING ANTIBIOTICS Allergy Unknown NAUSEA & Uncoded 04/23/25 08:30 VOMITING Review of Systems Review of Systems: Yes all other systems are reviewed and are negative Constitutional: Constitutional: Reports as per [facility] Past Medical History Medical History (Updated 04/23/25 @ 19:29 by NICHOLE Nair) History of bladder cancer Hepatitis C Von Willebrands disease Hemochromatosis Coronary artery disease Hypertension Hypercholesterolemia COPD (chronic obstructive pulmonary disease) Nicotine dependence, cigarettes, uncomplicated Lumbar spondylosis Vitamin D insufficiency Surgical History (System 12/07/23 @ 13:22 by Karma Ponce) H/O colonoscopy History of liver biopsy History of removal of cyst History of tumor History of oral surgery History of section Family History Family History Father No problems noted. Mother Diabetes Brother Hemochromatosis Stomach cancer Sister Hemochromatosis Son In good health Social History Social History (System 12/07/23 @ 13:22 by Karma Ponce) Housing: House Alcohol intake: current Alcohol intake frequency: holidays/special occasions only Patient Tobacco Use Status: Current someday Tobacco user Tobacco use type: Cigarette Cigarette Packs Per Day: 0.5 Cigarettes Per Day: 8 e-Cigarette/Vaping Use: Never Used Second Hand Smoke Exposure: No service: No Current occupational status: retired Cognitive needs: No Hearing needs: No Vision needs: Yes Physical Exam ED Vital Signs: Vital Signs - 24 hr 04/23/25 08:28 04/23/25 11:19 04/23/25 11:20 Temperature 97.9 F Pulse Rate 99 92 96 Respiratory Rate 20 18 18 Blood Pressure 138/110 H 228/122 H Pulse Oximetry 96 96 97 Oxygen Delivery Method Room Air Room Air Room Air 04/23/25 11:48 Temperature Pulse Rate Respiratory Rate Blood Pressure 228/125 H Pulse Oximetry Oxygen Delivery Method BMI result Body Mass Index 25.8 Const General: cooperative, comfortable and no acute distress Orientation/consciousness: patient oriented x3 Limitations: no limitations HENOH Head: Yes normal to inspection, Yes normocephalic and Yes atraumatic Ears: hearing grossly normal bilaterally General nose exam: Normal external nose present Face and sinus: Yes normal facial exam Mouth: Normal oral and palatal mucosa present, oropharynx normal and moist mucous membranes Throat: Yes posterior oropharynx normal Eyes General: appearance normal, both eyes and all related structures Eyelids: Yes eyelids normal Conjunctivae: conjunctivae normal Sclerae: sclerae normal Pupils: Equal, round and reactive pupils present EOM: EOMs intact bilaterally Neck Neck: Yes normal visual inspection, Yes full ROM and Yes no lymphadenopathy Lymphatic: no lymphadenopathy noted Chest Chest palpation & inspection: normal inspection of the chest Resp Effort & Inspection: normal respiratory effort and able to speak in complete sentences Auscultation: clear to auscultation bilaterally, no crackles, no rales, no rhonchi and no wheezes Cardio Rate: regular rate Rhythm: regular rhythm Heart sounds: S1 normal heart sound present and S2 normal heart sound present GI Other: Abdomen is soft, nontender, nondistended Inspection: Yes normal to inspection Back/Spine/Pelvis Other: No bony step-off or deformity. No midline spine tenderness on examination. No overlying skin changes, or rashes noted to the right flank, no CVA tenderness. No appreciable back pain with palpation. Back pain is appreciated when she is lying down flat. Skin General skin exam: no rashes or lesions noted Trauma: no lacerations or abrasions Wounds: no wounds Neuro General: patient oriented x3 and moves all extremities Cranial nerves: Yes Equal, round and reactive pupils present Extrem General: Yes normal to inspection Right upper extremity: normal to inspection Left upper extremity: normal to inspection Right lower extremity: normal to inspection Left lower extremity: normal to inspection Medications Administered Discontinued Medications Generic Name Dose Route Start Last Admin Trade Name Erwin PRN Reason Stop Dose Admin Alprazolam 0.5 mg 04/23/25 10:50 04/23/25 11:12 Alprazolam 0.5 Mg Tablet PO 04/23/25 10:51 0.5 mg ONCE ONE Administration Iohexol 100 ml 04/23/25 11:05 04/23/25 11:06 Iohexol 350 Mg/Ml 100 Ml Infus..Btl IV 04/23/25 11:06 65 ml ONCE ONE Administration Medical Decision Making Medical Decision Making MDM Narrative: This is a 75-year-old female,with a past medical history of hypertension, COPD, hepatitis-C, Von Willebrand's disease, hemochromatosis, who presents emergency department with concerns for right-sided back pain for the last 5 days. On arrival, patient is very anxious, stating that she does not want to be here. Labs were obtained prior to my evaluation, she has no leukocytosis, she has slight elevation in her hemoglobin and hematocrit, she does have a history of von Willebrand's disease and hemochromatosis, chemistry with slight elevation in BUN, she has a history of this, total bili 1.1. Added troponin and EKG although ACS is unlikely. 1005- EKG performed, she does have ST depression seen in lead 1, 2, and aVL no ST elevation in lead 3; no previous for comparison. Given symptoms have been ongoing for the last 4 days, this does not appear to be cardiac in nature however will add troponin. Will also obtain CTA to rule out PE versus malignancy. I urged the importance of patient to stay. She states that her anxiety is very high, I offered medicate her with her anxiety med that she takes at home, Xanax, she adamantly refuses. She states that if she walks out, ?do not be surprised? 1100- 2nd troponin returns, negative delta change at 20.3. Patient requesting to be medicated with her anxiety medication. Will medicate with Xanax 0.5 mg. We will continue to closely monitor. She has no chest pain or shortness of breath. 1130 - CTA revealing no evidence of pulmonary embolism. There is dilatation of the main pulmonary artery, compatible with pulmonary a arterial hypertension. There is a 2.9 cm right adrenal mass, she also has scattered 1-2 mm nodules in her right upper and left upper lobe. Discussed this finding with patient. Her blood pressure is elevated at 228/125. I discussed with my attending physician, Dr. Brothers recommends treating blood pressure with Versed. I discussed with patient that it would be best if she stayed to get IV medications to lower her blood pressure. She states that she always gets high blood pressure when she is in a medical setting, and this is attributed to her anxiety. I stressed the importance of staying as an elevated blood pressure like this can cause serious life-threatening illness including but not limited to stroke, heart attacks and or . She understands these risks and consequences. Despite knowing these risks of the consequences she would still like to be discharged, patient signed against medical advice. Differential Diagnosis Differential Diagnoses: The differential diagnosis associated with the presentation includes Lumbar strain, spasm, degenerative disc disease, PE, ACS Admission/Observation Consideration of admission/observation: Escalation of care including admission/observation considered Lab Data MDM Lab Attestation statement: I reviewed the patient's lab results. See MDM and course 04/23/25 08:41 04/23/25 08:41 Labs: Lab Results 04/23/25 04/23/25 04/23/25 Range/Units 08:41 09:57 11:16 WBC 10.1 (4.8-10.8) X10*3/uL RBC 5.41 (4.20-5.50) X10*6/uL Hgb 16.4 H (12.0-16.0) g/dl Hct 47.7 H (37.0-47.0) % MCV 88.2 (80.0-98.0) fL MCH 30.3 (27.0-33.0) pg MCHC 34.4 (31.0-35.0) g/dl RDW 14.0 (11.0-16.0) % Plt Count 338 (160-400) X10*3/uL MPV 8.8 L (9.4-12.3) fL Immature Gran % (Auto) 0.3 (0.0-0.4) % Neut % (Auto) 63.1 (45-73) % Lymph % (Auto) 27.0 (20-40) % Thayer % (Auto) 8.0 (2-11) % Eos % (Auto) 1.3 (0-4) % Baso % (Auto) 0.3 (0-2) % Lymph # (Auto) 2.7 (1.2-4.9) X10*3/uL Thayer # (Auto) 0.8 (0.1-1.2) X10*3/uL Eos # (Auto) 0.1 (0.0-0.4) X10*3/uL Baso # (Auto) 0.0 (0.0-0.2) X10*3/uL Abs Immat Gran (auto) 0.03 (0.00-0.03) X10*3/uL Absolute Neuts (auto) 6.4 (2.0-8.3) x10*3/uL Absolute Nucleated RBC 0.000 (0.0-0.012) X10*3/uL Nucleated RBC % (auto) 0.0 (0.0-0.2) /100WBC D-Dimer High Sensitivty < 150 NG/ML Sodium 140 (135-145) mmol/L Potassium 4.0 (3.3-5.1) mmol/L Chloride 108 (96-108) mmol/L Carbon Dioxide 23 (22-29) mmol/L Anion Gap 13 (12-20) BUN 24 H (9-16) mg/dL Creatinine 0.96 (0.5-1.4) mg/dL Estim Creat Clear Calc 52.4 Estimated GFR 57 Random Glucose 131 H (60-115) mg/dL Calcium 9.8 (8.4-10.2) mg/dL Total Bilirubin 1.1 H (0.0-1.0) mg/dL AST 24 (5-31) U/L ALT 15 (0-31) U/L Alkaline Phosphatase 71 (39-117) U/L Troponin I High Sens 22.4 H 20.3 H (<3.5-17.0) ng/L Total Protein 8.4 H (6.5-8.0) g/dL Albumin 5.0 (3.5-5.0) g/dL Lipase 50 (8-78) U/L Radiology Impression Discussion of test interpretation with radiology: I have reviewed the radiologist's reading. Radiologist Impression: CT/CT angio chest PE protocol IMPRESSION: No evidence of pulmonary emboli. Dilatation of the main pulmonary artery, compatible with pulmonary arterial hypertension. No acute abnormality is seen. Electronically signed by: Irineo Vance MD 04/23/2025 11:28 AM EDT RP Dictated By: Irineo Vance MD [address] [id number] XRay Report Signed Patient: Sraanya Pedraza MR#: [id number] : 1950 Acct:[id number] Age/Sex: 75 / F ADM Date: 04/23/25 Loc: HO.ED Attending Dr: Ordering Physician: Generic ED Physician Date of Service: 04/23/25 Procedure(s): XR chest 2V Accession Number(s): [id number] cc: Generic ED Physician; Elisa House MD~ EXAMINATION: XR CHEST 2 VIEWS HISTORY: back pain, rib pain COMPARISON: Comparison is made with the prior examination dated 10/19/2006. FINDINGS: PA and lateral views of the chest are submitted. The lungs are hyperinflated, consistent with COPD. The lungs are clear. There is no pleural effusion, pneumothorax, or pulmonary vascular congestion. The heart is normal in size. The aorta is tortuous and calcified. There is degenerative disc disease of the spine. XR/XR chest 2V IMPRESSION: COPD. No acute cardiopulmonary abnormality. Electronically signed by: Irineo Vance MD 04/23/2025 09:20 AM EDT RP Dictated By: Irineo Vance MD Critical Care Time Critical Care Time Critical Care Time: Yes Total Critical Care Time: 31 Attestation: I have personally provided critical care time exclusive of time spent on separately billable procedures. Time includes review of lab data, radiology results, discussion with consultants, and monitoring for potential decompensation. Intervention performed as documented. Discharge Plan Discharge Clinical Impression: Back pain, Elevated troponin, Elevated blood pressure reading Patient Disposition: Left Against Medical Advice Instructions: Back Pain (ED) Additional Instructions: You were seen in the emergency department due to back pain. Your blood pressure is profoundly elevated and your risk for serious life-threatening illness including but not limited to stroke, heart attack and or . You need follow-up with your primary care physician regarding this visit. If any new or worsening symptoms occur please return for re-evaluation. Prescriptions: No Action tramadol 50 mg tablet 50 mg PO .QD PRN (Reason: pain) Qty: 30 1RF ibuprofen 200 mg capsule 200 mg PO Q6H PRN nicotine 21 mg/24 hr patch 24 hour 1 patch transdermal DAILY Qty: 28 1RF alprazolam 0.5 mg tablet 0.5 mg PO BID PRN (Reason: anxiety) Qty: 45 1RF simvastatin 20 mg tablet 20 mg PO BEDTIME 90 Days Qty: 90 1RF albuterol sulfate [ProAir HFA] 90 mcg/actuation HFA aerosol inhaler 2 puff inhalation Q4-6H PRN (Reason: shortness of breath or wheezing) Qty: 8.5 2RF aspirin 81 mg tablet,delayed release (DR/EC) 81 mg PO DAILY dicyclomine 10 mg capsule 10 mg PO BID PRN (Reason: abdominal pain) Qty: 14 0RF cephalexin 500 mg capsule 500 mg PO Q12H 5 Days Qty: 10 0RF polyethylene glycol 3350 [Miralax] 17 gram/dose powder 238 g PO ONCE Qty: 238 0RF Rx Instructions: As directed by gastroenterology department at [facility] Stand Alone Forms: Against Medical Advice Discharge Date/Time: 04/23/25 12:56 Print Language: Slovenian
--- NOTE | 2025-04-23 09:47 | ECG_ITS ---
Test Reason : BACK PAIN Blood Pressure : */* mmHG Vent. Rate : 89 BPM Atrial Rate : 89 BPM P-R Int : 124 ms QRS Dur : 106 ms QT Int : 360 ms P-R-T Axes : -4 -14 100 degrees QTcB Int : 438 ms Normal sinus rhythm with sinus arrhythmia Incomplete left bundle branch block Left ventricular hypertrophy with repolarization abnormality ( R in aVL , Sokolow-[place] , Nathaniel product , Romhilt-Vides ) Abnormal ECG No previous ECGs available Referred By: Martha Mckeon Electronically Signed By: GEM MOTLEY
[2025-04-23 10:19] LABS: D Dimer High Sensitivity < 150 NG/ML
[2025-04-23 10:49] LABS: Troponin-I High Sensitivity 22.4 ng/L (<3.5-17.0)
[2025-04-23] MEDS: iohexoL 350 MG/ML 100 ML INFUS..BTL IV (11:06)
[2025-04-23] MEDS: ALPRAZolam 0.5 MG TABLET PO (11:12)
[2025-04-23 11:19] VITALS: PULSE 92; RESP 18; O2SAT 96
[2025-04-23 11:20] VITALS: BP 228/122; PULSE 96; RESP 18; O2SAT 97
--- NOTE | 2025-04-23 11:20 | PC.NURSE ---
Informed provider Martha when attempting to check pt's bp, pt. had htn. Per provider continue to monitor.
[2025-04-23 11:48] VITALS: BP 228/125
--- NOTE | 2025-04-23 11:48 | PC.NURSE ---
Updated provider of pt's b/p was 228/125. Awaiting ct results.
[2025-04-23 11:51] LABS: Troponin-I High Sensitivity 20.3 ng/L (<3.5-17.0)
[2025-04-23 11:55] LABS: Lipase 50 U/L (8-78)
--- NOTE | 2025-04-23 12:39 | PC.NURSE ---
NICHOLE Mckeon notified via [employer] pt wishes to leave, sts my blood pressure is only going to get worse the longer that I am here. IV removed per PT request. NICHOLE Mckeon to bedside, explained it is recommended pt remain in dept for HTN control, again pt refused stated My blood pressure will go up the longer I am here. NICHOLE Mckeon advised pt would be signing out AMA to which pt agreed.
--- NOTE | 2025-04-23 12:49 | PC.NURSE ---
Update on pt's bp was 211/107, pt. requesting to speak to provider, informed pt. that provider is communicating with md about next course of action and ct results. Pt. requesting that RN take out iv.
== END 2025-04-23 12:56 | disposition left against medical advice (07) ==
PROVIDERS: Physician Assistant Medical; Emergency Provider Emergency Medicine Emergency Medical Services; PCP Internal Medicine
DX: M54.9 Dorsalgia, unspecified (principal); R79.89 Other specified abnormal findings of blood chemistry; I10 Essential (primary) hypertension; E78.00 Pure hypercholesterolemia, unspecified; F17.210 Nicotine dependence, cigarettes, uncomplicated; Z53.29 Procedure and treatment not carried out because of patient's decision for other reasons
CPT/HCPCS: 36415; 71046; 71275; 80053; 83690; 84484; 85025; 85379; 93005; 99284; Q9967

== ENCOUNTER → 2025-04-23 09:00 | Outpatient (BNV) | payer OTHER, MEDICARE, MEDICAID, SELFPAY | PROVIDERS: Emergency Provider Emergency Medicine Emergency Medical Services; PCP Internal Medicine; Visit Provider Radiology Diagnostic Radiology | DX: R07.9 Chest pain, unspecified (principal); J44.9 Chronic obstructive pulmonary disease, unspecified | CPT/HCPCS: 71046; 71275 ==

== ENCOUNTER → 2025-04-23 09:47 | Outpatient (BNV) | payer OTHER, MEDICARE, MEDICAID, SELFPAY | PROVIDERS: Emergency Provider Emergency Medicine Emergency Medical Services; PCP Internal Medicine; Visit Provider Internal Medicine | DX: I44.7 Left bundle-branch block, unspecified (principal); I51.7 Cardiomegaly; I49.9 Cardiac arrhythmia, unspecified | CPT/HCPCS: 93010 ==

== ENCOUNTER 2025-05-03 14:17 | Outpatient (AMB) | payer OTHER, MEDICARE, MEDICAID, SELFPAY ==
[2025-05-03 14:21] VITALS: BP 192/90; PULSE 84; TEMP 36.2; O2SAT 98; BMI 25.0
--- NOTE | 2025-05-03 14:21 | A.OFFPC_ITS ---
Vital Signs 05/03/25 14:21 Height 5 ft 6 in Weight 155 lb 2 oz BMI 25.0 BP 192/90 H Blood Pressure Location Rt brachial Position Sitting Pulse 84 Pulse Source Pulse Oximeter Temp 97.2 F Temp Source Temporal Artery Scan Pulse Oximetry (%) 98 Oxygen Delivery Method Room Air Intake Visit Reasons: [facility] [place] [employer]house [employer]er Required: No Accompanied by: Self / Same As Patient Allergies erythromycin base Allergy (Severe, Verified 05/03/25 14:30) Anaphylaxis Penicillins Allergy (Severe, Verified 05/03/25 14:30) Unknown Sulfa (Sulfonamide Antibiotics) Allergy (Intermediate, Verified 05/03/25 14:30) allergic reaction fentanyl Allergy (Unknown, Verified 05/03/25 14:30) vomiting morphine Allergy (Unknown, Verified 05/03/25 14:30) Unknown oxycodone [From Percodan] Allergy (Unknown, Verified 05/03/25 14:30) Unknown varenicline [From CHANTIX] Allergy (Unknown, Verified 05/03/25 14:30) NAUSEA & VOMITING ANTIBIOTICS Allergy (Unknown, Uncoded 05/03/25 14:30) NAUSEA & VOMITING Tobacco use date assessed: 05/03/25 Fall risk assessment: No Falls in past year Last assessed Fall Risk: 05/03/25 Dental Screening Dental Screen Date: 05/03/25 Did you have a dental visit in the last 12 months?: Yes Did you have a dental problem in the last 6 months where you did not have access to dental care?: No Was dental information given to patient?: Patient has dentist HPI HPI Comments History of Present Illness Details 75 y/o female patient who presents to [facility] today for EDF. Pt was admitted at [facility] on [facility]23 for evaluation of Back pain, chest pain and decreased Appetite. Pt did leave the ED without being seen. Today; Patient upset during the visit Why do I not get to see my Doctor ? I'm always seeing [employer]'s or PA's . Pt does not want to discuss anything regarding the hospital admission I just want you to send me to a heart doctor because I have abnormal rhythm, I want medication refills and plus medication for Heartburn . Pt then walked out of the appointment. [facility] Medical History (Updated 05/03/25 @ 15:11 by Cara K W Ndissi, [employer]) Chest pain History of bladder cancer Hepatitis C 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 Mother Diabetes Brother Hemochromatosis Stomach cancer Sister Hemochromatosis Son In good health Social History Housing: House Alcohol intake: current Alcohol intake frequency: holidays/special occasions only Patient Tobacco Use Status: Current someday Tobacco user Tobacco use type: Cigarette Cigarette Packs Per Day: 0.5 Cigarettes Per Day: 8 e-Cigarette/Vaping Use: Never Used Second Hand Smoke Exposure: No service: No Current occupational status: retired Cognitive needs: No Hearing needs: No Vision needs: Yes Questionnaire PHQ-9 Over the last 2 weeks, how often have you been bothered by any of the following problems? 1. Little interest or pleasure in doing things: several days 2. Feeling down, depressed, or hopeless: several days 3. Trouble falling or staying asleep, or sleeping too much: not at all 4. Feeling tired or having little energy: not at all 5. Poor appetite or overeating: not at all 6. Feeling bad about yourself - or that you are a failure or have let yourself or your family down: not at all 7. Trouble concentrating on things, such as reading the newspaper or watching television: not at all 8. Moving or speaking so slowly that other people could have noticed. Or the opposite - being so fidgety or restless that you have been moving around a lot more than usual: not at all 9. Thoughts that you would be better off or of hurting yourself in some way: not at all Total score: 2 53277 - PHQ-9 Billing: Yes Source: Developed by Drs. Irineo Rao, Terese Izquierdo, Demian Ocasio and colleagues, with an educational gabbie from [employer]. Thrive Questionnaire Date Thrive assessed: 05/03/25 I am a: Patient What is your living situation today?: I have a steady place to live Within the past 12 months, did the food you bought not last and you didn't have the money to get more?: Never true Within the past 12 months, did you worry whether your food would run out before you got money to buy more?: Never true Do you have trouble paying for medicines?: No Do you have trouble getting transportation to medical appointments?: No Do you have trouble paying your heating and electricity bill?: No Do you have trouble taking care of your child, family member or friend?: No Do you have trouble with day-to-day activities such as bathing, preparing meals, shopping, managing finances, etc.?: No Are you currently unemployed and looking for a job?: No Are you interested in more education?: No Please select the resources that you would like help with: None Currently or been in a relationship where the following occur: No concerns reported THRIVE Score: 0 AUDIT C Alcohol Use Questionnaire (AUDIT-C) 1. How often do you have a drink containing alcohol?: 2-4 times a month 2. How many drinks containing alcohol do you have on a typical day when you are drinking?: 1 or 2 3. How often do you have six or more drinks on one occasion?: Never Total Score: 2 Score Reviewed/Action Taken: No STEPHANIE-7 AMB Questionnaire STEPHANIE-7 Date STEPHANIE - 7 assessed: 05/03/25 Feeling nervous, anxious, or on edge: 0 = Not at all Not being able to stop or control worryin = Not at all Worrying too much about different things: 0 = Not at all Trouble relaxin = Not at all Being so restless that it is hard to sit still: 0 = Not at all Becoming easily annoyed or irritable: 0 = Not at all Feeling afraid as if something awful might happen: 0 = Not at all Total STEPHANIE-7 score (0-4 normal; 5-9 mild; 10-14 moderate; 15-21 severe): 0 Source: Developed by Drs. Irineo Rao, Terese Izquierdo, Demian Ocasio and colleagues, with an educational gabbie from [employer]. STEPHANIE-7 Assessment Billing STEPHANIE-7 Assessment Tool: STEPHANIE-7 Assessment 79733 Review of Systems Const All systems reviewed & are unremarkable except as noted in HPI and below Physical exam (Primary Care) Vital Signs: Last Vital Signs Temp 97.2 F 05/03/25 14:21 Pulse 84 05/03/25 14:21 BP 192/90 H 05/03/25 14:21 Pulse Ox 98 05/03/25 14:21 Oxygen Delivery Method Room Air 05/03/25 14:21 BMI result Body Mass Index 25.0 Tobacco/Smoking Status: Tobacco use Status Tobacco use date assessed 05/03/25 05/03/25 14:31 Patient Tobacco Use Status Current someday Tobacco 05/03/25 14:21 Tobacco use type Cigarette 05/03/25 14:21 e-Cigarette/Vaping Use Never Used 05/03/25 14:21 PHQ-9: PHQ-9 Score PHQ-9: Total score 2 05/03/25 14:31 Thrive Assessment: Date of Thrive Assessment Date Thrive assessed 05/03/25 05/03/25 14:31 Currently or been in a relationship where the following occur: No concerns reported Const General: no acute distress and anxious Orientation/consciousness: patient oriented x3 Neuro General: patient oriented x3, gait normal and moves all extremities Psych Speech and movement: Clear speech present Affect: Irritable affect present Attitude: Avoids eye contact (attititude/behavior) and Refuses to answer (attititude/behavior) Coding Level of Care Code Est Pt Level 4 (95436) Diagnoses Chest pain, unspecified type R07.9 Chest pain type: unspecified Chronic right-sided low back pain without sciatica M54.50; G89.29 Back pain location: low back pain Chronicity: chronic Back pain laterality: right Sciatica presence: without sciatica Heartburn R12 Additional Codes STEPHANIE-7 Assessment Billing - STEPHANIE-7 Assessment Tool: STEPHANIE-7 Assessment 29504 ([id number]) PHQ-9 - 62193 - PHQ-9 Billing: Yes ([id number]) Time Spent (min) 20 Assessment & Plan Assessment & Plan (1) Chest pain: Code(s): R07.9 - Chest pain, unspecified Category: Medical Qualifiers: Chest pain type: unspecified Qualified Code(s): R07.9 - Chest pain, unspecified Plan: EKG showed ST depression, but no ST elevation, r/o Cardiac in nature. CTA no evidence of Pulmonary Embolism Blood Pressure was elevated in the ED - recommended IV medications to lower BP; Patient declined in the ED. BP elevated during the visit today; Pt did not want to discuss (2) Back pain: Code(s): M54.9 - Dorsalgia, unspecified Category: Medical Qualifiers: Back pain location: low back pain Chronicity: chronic Back pain laterality: right Sciatica presence: without sciatica Qualified Code(s): M54.50 - Low back pain, unspecified; G89.29 - Other chronic pain Plan: NSAIDs for pain relief. (3) Heartburn: Code(s): R12 - Heartburn Plan: Ordered Omeprazole. Medications: New omeprazole 20 mg PO BID 30 days 60 caps 0RF R12 - Heartburn
== END 2025-05-03 15:03 | disposition home or self-care (01) ==
LOC: HO.HMCH 14:18
PROVIDERS: PCP Internal Medicine; Visit Provider Nurse Practitioner Family
DX: R07.9 Chest pain, unspecified (principal); M54.50 Low back pain, unspecified; G89.29 Other chronic pain; R12 Heartburn

== ENCOUNTER → 2025-05-03 14:17 | Outpatient (BNVA) | payer MEDICARE, OTHER, SELFPAY | PROVIDERS: PCP Internal Medicine; Visit Provider Nurse Practitioner Family | DX: G89.29 Other chronic pain (principal); M54.50 Low back pain, unspecified; R07.9 Chest pain, unspecified; R12 Heartburn | CPT/HCPCS: 96127 ==

== ENCOUNTER 2025-08-29 15:56 | Outpatient (AMB) | payer MEDICARE, MEDICAID, SELFPAY ==
[2025-08-29 16:04] VITALS: BP 114/82; PULSE 90; TEMP 36.1; O2SAT 97; BMI 25.4
--- NOTE | 2025-08-29 16:08 | AM.OFFVISMDC ---
Intake Vital Signs 08/29/25 16:04 08/29/25 16:13 Height 5 ft 6 in Weight 157 lb 2 oz BMI 25.4 25.4 BP 114/82 Blood Pressure Location Lt brachial Position Sitting Pulse 90 Pulse Source Pulse Oximeter Temp 97.0 F Temp Source Temporal Artery Scan Pulse Oximetry (%) 97 Oxygen Delivery Method Room Air Intake Visit Reasons: Annual PE Allergies erythromycin base Allergy (Severe, Verified 08/29/25 16:08) Anaphylaxis Penicillins Allergy (Severe, Verified 08/29/25 16:08) Unknown Sulfa (Sulfonamide Antibiotics) Allergy (Intermediate, Verified 08/29/25 16:08) allergic reaction fentanyl Allergy (Unknown, Verified 08/29/25 16:08) vomiting morphine Allergy (Unknown, Verified 08/29/25 16:08) Unknown oxycodone (From Percodan) Allergy (Unknown, Verified 08/29/25 16:08) Unknown varenicline (From CHANTIX) Allergy (Unknown, Verified 08/29/25 16:08) NAUSEA & VOMITING Medication List - Last Reconciled 08/29/25 by Elisa House MD albuterol sulfate 90 mcg/actuation (ProAir HFA) 2 puffs inhalation Q4-6H PRN alprazolam 0.5 mg PO BID PRN aspirin 81 mg PO DAILY dicyclomine 10 mg PO BID PRN diphenhydramine HCl (Benadryl) 25 mg PO BEDTIME PRN ibuprofen 200 mg PO Q6H PRN metoprolol succinate ER 25 mg PO DAILY nicotine 1 patch transdermal DAILY omeprazole 20 mg PO .QD PRN polyethylene glycol 3350 (Miralax) 238 grams PO ONCE simvastatin 20 mg PO BEDTIME 90 days tramadol 50 mg PO .QD PRN HPI Annual PE HPI Details [facility] gastroenterology [facility] Orthopedics [facility] Urology [facility] Medical History Chest pain History of bladder cancer Hepatitis C 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 Mother Diabetes Brother Hemochromatosis Stomach cancer Sister Hemochromatosis Son In good health Social History (Updated 08/29/25 @ 16:34 by Elisa House MD) Housing: House Alcohol intake: current Alcohol intake frequency: holidays/special occasions only Comment: 1 glass once amonth Patient Tobacco Use Status: Current someday Tobacco user Tobacco use type: Cigarette Cigarette Packs Per Day: 0.5 Cigarettes Per Day: 10 Years Smoked: since 15 years e-Cigarette/Vaping Use: Never Used Second Hand Smoke Exposure: No service: No Current occupational status: retired Cognitive needs: No Hearing needs: No Vision needs: Yes Questionnaire Medicare Wellness Checkup [age] What gender do you identify with?: female During the past 4 weeks, how much have you been bothered by emotional problems such as feeling anxious, depressed, irritable, sad or downhearted, and blue?: extremely During the past 4 weeks, has your physical & emotional health limited your social activities with family, friends, neighbors, or groups?: quite a bit During the past 4 weeks, how much bodily pain have you generally had?: moderate pain During the past 4 weeks, was someone available to help you if you needed & wanted help?: yes, as much as I wanted During the past 4 weeks, what was the hardest physical activity you could do for at least 2 minutes?: moderate Can you get to places out of walking distance without help? (For eg., can you travel alone on buses, taxis or drive your car?): Yes Can you go shopping for groceries or clothes without someone's help?: Yes Can you prepare your own meals?: Yes Can you do your housework without help?: Yes Because of any health problems, do you need the help of another person with your personal care needs such as eating, bathing, dressing or getting around the house?: No Can you handle your own money without help?: Yes During the past 4 weeks, how would you rate your health in general?: fair During the past 4 weeks how have things been going for you?: good & bad parts about equal Are you having difficulties driving your car?: no Do you always fasten your seat belt when you are in a car?: yes, usually During past 4 weeks, have you been bothered by the following: never: Falling or dizzy when standing up, Sexual problems?, Trouble eating well? and Problems using the telephone?, seldom: Teeth or denture problems? and often: Tiredness or fatigue? Have you fallen 2 or more times in the past year?: No Are you afraid of falling?: No Are you a smoker?: yes, and I might quit During the past 4 weeks, how many drinks of wine, beer, or other alcoholic beverages did you have?: 1 drink or less per week Do you exercise for about 20 minutes 3 or more times a week?: yes, some of the time Have you been given information to help with the following?: no: Hazards in your house that might hurt you? and no: Keeping track of your medications? How often do you have trouble taking medicines the way you have been told to take them?: sometimes I take medicine as prescribed How confident are you that you can control & manage most of your health problems?: very confident What is your race?: Other (Human) PHQ-9 Over the last 2 weeks, how often have you been bothered by any of the following problems? 1. Little interest or pleasure in doing things: more than half the days 2. Feeling down, depressed, or hopeless: several days 3. Trouble falling or staying asleep, or sleeping too much: more than half the days 4. Feeling tired or having little energy: more than half the days 5. Poor appetite or overeating: several days 6. Feeling bad about yourself - or that you are a failure or have let yourself or your family down: several days 7. Trouble concentrating on things, such as reading the newspaper or watching television: not at all 8. Moving or speaking so slowly that other people could have noticed. Or the opposite - being so fidgety or restless that you have been moving around a lot more than usual: not at all 9. Thoughts that you would be better off or of hurting yourself in some way: not at all Total score: 9 Depression Screening Interpretation: Positive Depression Screening Done: Yes 51678 - PHQ-9 Billing: Yes Source: Developed by Terese DesaiW. Timbo, Demian Ocasio and colleagues, with an educational gabbie from [employer]. Review of Systems Const Denies poor appetite and Denies weakness Eyes Denies no additional complaints ENT Reports Normal hearing present, Denies dizziness, Denies nasal congestion, Denies tinnitus and Denies sore throat Card Denies chest pain, Denies syncope, Denies rapid heart rate and Denies dyspnea Resp Denies cough and Denies dyspnea GI Denies change in stool character, Reports constipation, Denies diarrhea, Denies nausea and Denies vomiting Denies urinary frequency, Denies difficulty voiding and Denies dysuria Neuro Reports Normal hearing present, Denies confusion, Denies dizziness, Denies syncope and Denies weakness Psych Denies confusion Physical Exam Vital Signs: Last Vital Signs Temp 97.0 F 08/29/25 16:04 Pulse 90 08/29/25 16:04 BP 114/82 08/29/25 16:04 Pulse Ox 97 08/29/25 16:04 Oxygen Delivery Method Room Air 08/29/25 16:04 BMI result Body Mass Index 25.4 Const General: No confusion Orientation/consciousness: No confusion HEENT Head: Yes normocephalic Ears: external ears normal and TM's normal bilaterally Face and sinus: Yes normal facial exam Mouth: moist mucous membranes Throat: Yes tonsils normal Eyes Conjunctivae: conjunctivae normal Pupils: Equal, round and reactive pupils present and Pupil accommodation reflex normal Direct Ophthalmoscopy: normal light reflex Neck Neck: No lymphadenopathy Thyroid: Thyroid normal Chest Chest palpation & inspection: normal inspection of the chest Resp Effort & Inspection: normal respiratory effort and no audible wheezes Auscultation: clear to auscultation bilaterally, no crackles, no wheezes and lung sounds not diminished Cardio Rate: regular rate Rhythm: regular rhythm Peripheral pulses: radial pulses present and dorsalis pedis present GI Palpation (GI): no masses Auscultation: normal bowel sounds and normoactive bowel sounds Rectal Exam - Female: deferred Skin General skin exam: no rashes or lesions noted Rashes: no rashes Neuro General: No confusion Cranial nerves: Yes Equal, round and reactive pupils present and Yes Normal hearing present Cognition (Neuro): normal cognition Gait exam (Neuro): Normal gait present Motor exam (neuro): 5/5 motor strength present throughout Deep tendon reflexes (DTR's): Right brachioradialis reflex intensity grade: 2+, Left brachioradialis reflex intensity grade: 2+, Right patellar reflex intensity grade: 2+ and Left patellar reflex intensity grade: 2+ Extrem General: No edema Office Procedures Flu Questionnaire Does the patient have a severe egg allergy?: No Does the patient have severe life threatening allergies?: No Does the patient have a fever or illness today?: No Has the patient ever had Guillain-Brackenridge Syndrome?: No Has the patient ever had any past reaction to a flu shot?: No Immunizations Fluarix [id number] (PF) 45 mcg (15 mcg x 3)/0.5 mL IM syringe Performing Provider: Elisa House MD [facility] Administered by: Emilee George CMA on 08/29/25 16:26 Dose Route Admin Location Dispensed Lot Number Expiration Date NDC Stock Patch Sawyer 0.5 mL IM Left Deltoid 0.5 mL [id number] 05/20/26 [id number] Spry VIS Given Date VIS Provided VIS Publication Date 08/29/25 Single Vaccine 24 Eligibility Eligibility Date Funding Source Not [facility] Eligible 08/29/25 Private Assessment & Plan Assessment & Plan (1) Annual physical exam: Code(s): Z00.00 - Encounter for general adult medical examination without abnormal findings Plan: Patient is advised to eat healthy, keep well hydrated, keep active and have adequate sleep. (2) Nicotine dependence, cigarettes, uncomplicated: Comment: (30+PYH) Code(s): F17.210 - Nicotine dependence, cigarettes, uncomplicated Plan: Patient is strongly advised to stop smoking. Patient is enrolled in the lung cancer screening program (3) COPD (chronic obstructive pulmonary disease): Code(s): J44.9 - Chronic obstructive pulmonary disease, unspecified Qualifiers: COPD type: emphysema Emphysema type: panlobular Qualified Code(s): J43.1 - Panlobular emphysema Plan: Patient is strongly advised to stop smoking! Patient on albuterol (4) History of bladder cancer: Comment: June 2013 recurrence 2013 bladder biopsy December 10- Code(s): Z85.51 - Personal history of malignant neoplasm of bladder Plan: Patient advised to follow-up with urology (5) Breast cancer screening by mammogram: Code(s): Z12.31 - Encounter for screening mammogram for malignant neoplasm of breast Plan: Patient is reminded about mammogram (6) Hemochromatosis: Comment: Dr. Hyman Code(s): E83.119 - Hemochromatosis, unspecified Plan: Continue to follow-up with Hematology-Oncology (7) Colon cancer screening: Code(s): Z12.11 - Encounter for screening for malignant neoplasm of colon Plan: Discussed about colon cancer screening (8) Impaired glucose tolerance: Code(s): R73.02 - Impaired glucose tolerance (oral) Plan: Decrease the amount of carbohydrate intake, pasta, bread, rice and potatoes are all sugar and that is aside from all the sweet stuff, remember that fruits are good but they are Sweet also. (9) Hypercholesterolemia: Code(s): E78.00 - Pure hypercholesterolemia, unspecified Plan: Avoid fried foods, chicken skin, eggs, butter margarine, pastries and meat. Be it pork or beef they have a lot of cholesterol LDL goal of less than 70 and triglyceride of less than 150 blood work requested (10) Coronary artery disease: Code(s): I25.10 - Atherosclerotic heart disease of [place] coronary artery without angina pectoris Qualifiers: Coronary Disease-Associated Artery/Lesion type: [place] artery [place] vs. transplanted heart: [place] heart Associated angina: without angina Qualified Code(s): I25.10 - Atherosclerotic heart disease of [place] coronary artery without angina pectoris Plan: Control the cholesterol, weight, blood pressure, advised patient to be onbaby aspirin (11) Hypertension: Code(s): I10 - Essential (primary) hypertension Plan: Continue with blood pressure medication. Decrease salt intake and exercise patient is on metoprolol 25 mg once a day (12) Generalized anxiety disorder: Comment: Declined counseling or medication, decline counselling 05/2024 Code(s): F41.1 - Generalized anxiety disorder Plan: Continue with therapy patient on alprazolam as needed (13) Carotid bruit: Code(s): R09.89 - Other specified symptoms and signs involving the circulatory and respiratory systems Plan History of Present Illness The patient is a 75-year-old female presenting for a physical examination and management of multiple chronic conditions. The patient has a history of degenerative disc disease, which has been managed conservatively. She was seen in April for back pain and was given omeprazole for heartburn, indicating a possible link between her gastrointestinal symptoms and back pain. The patient has moderate depressive disorder and experiences anxiety, for which she takes alprazolam as needed. She does not currently see a counselor or therapist. The patient has a significant smoking history, having smoked since age 15, and currently smokes half to three-quarters of a pack per day. She is enrolled in a lung cancer screening program and is strongly advised to stop smoking. The patient has chronic obstructive pulmonary disease (COPD) and is on albuterol, although she reports minimal use of the inhaler. She experiences occasional coughing but denies significant dyspnea. The patient has a history of coronary artery disease and is advised to take baby aspirin. She is on metoprolol for hypertension, which is well-controlled. The patient has impaired glucose tolerance with an elevated blood sugar noted at 131 mg/dL. She is advised to follow a healthy diet and exercise regimen. The patient has a history of hypercholesterolemia, with the last cholesterol level recorded at 112 mg/dL in August 2024. She is on simvastatin for cholesterol management. The patient has a history of bladder cancer and is advised to follow up with urology. She has not had a recent urological evaluation since her last surgery approximately a year and a half ago. The patient has a history of hemochromatosis and requires follow-up with hematology. The patient reports a sebaceous cyst, which is not currently causing discomfort or changes. [facility] - Lung cancer screening program enrollment - Colon cancer screening with stool test - Advised to stop smoking - Advised to follow a healthy diet and exercise regimen - Advised to take baby aspirin for coronary artery disease Social History - Smoking: Smokes half to three-quarters of a pack per day, started at age 15 - Alcohol: Consumes one drink per month - Exercise: Walks regularly, including around grocery stores and at home - Substance use: Occasionally uses marijuana, prefers gummies over smoking Review of Systems - General: Denies fever, weight loss, or fatigue - Cardiovascular: Denies chest pain, palpitations, or syncope - Respiratory: Reports occasional cough, denies dyspnea or wheezing - Gastrointestinal: Reports heartburn, denies nausea, vomiting, or dysphagia - Neurological: Denies dizziness, headaches, or balance issues Physical Exam General: Cooperative, healthy appearing, comfortable, no acute distress and well developed Orientation: Patient oriented x3 Limitations: No limitations Head: Normal to inspection Ears: Hearing grossly normal bilaterally, noted to have a lot of ear wax in the left ear Nose: Normal external nose present Face and sinus: Normal facial exam Eyes: Appearance normal, both eyes and all related structures Neck: Normal visual inspection and Yes full ROM Respiratory: Normal respiratory effort and able to speak in complete sentences. Clear to auscultation bilaterally Cardiovascular: Regular rate and rhythm. Normal S1 and S2, noted extra beats GI: Normal to inspection. Soft to palpation and nontender Skin: No rashes or lesions noted, noted sebaceous cyst Neuro: Patient oriented x3 Extremities: Normal to inspection Results - Labs: Blood sugar elevated at 131 mg/dL, cholesterol at 112 mg/dL - Imaging: Dilatation of the main pulmonary artery noted, compatible with pulmonary artery hypertension Plan Patient was informed and verbally consented to the use of an ambient scribe for clinic note documentation during this visit. 1. Degenerative Disc Disease The patient has a history of degenerative disc disease, which has been managed conservatively. She was seen in April for back pain and was given omeprazole for heartburn, indicating a possible link between her gastrointestinal symptoms and back pain. 2. Moderate Depressive Disorder The patient has moderate depressive disorder and experiences anxiety, for which she takes alprazolam as needed. She does not currently see a counselor or therapist. 3. Chronic Obstructive Pulmonary Disease (Copd) The patient has chronic obstructive pulmonary disease (COPD) and is on albuterol, although she reports minimal use of the inhaler. She experiences occasional coughing but denies significant dyspnea. 4. Impaired Glucose Tolerance The patient has impaired glucose tolerance with an elevated blood sugar noted at 131 mg/dL. She is advised to follow a healthy diet and exercise regimen. 5. Hypertension The patient is on metoprolol for hypertension, which is well-controlled. 6. Hypercholesterolemia The patient has a history of hypercholesterolemia, with the last cholesterol level recorded at 112 mg/dL in August 2024. She is on simvastatin for cholesterol management. 7. Coronary Artery Disease The patient has a history of coronary artery disease and is advised to take baby aspirin. 8. History Of Hemochromatosis The patient has a history of hemochromatosis and requires follow-up with hematology. 9. History Of Bladder Cancer The patient has a history of bladder cancer and is advised to follow up with urology. She has not had a recent urological evaluation since her last surgery approximately a year and a half ago. 10. Pulmonary Artery Hypertension The patient has pulmonary artery hypertension, noted on imaging as dilatation of the main pulmonary artery. 11. Heartburn The patient was given omeprazole for heartburn, which she takes as needed. 12. Anxiety The patient experiences anxiety and takes alprazolam as needed. 13. Sebaceous Cyst The patient reports a sebaceous cyst, which is not currently causing discomfort or changes. Discussion Notes During the visit, I discussed the importance of smoking cessation with the patient, emphasizing the risks associated with continued smoking, particularly in the context of her COPD and pulmonary artery hypertension. We reviewed her medication regimen, including the use of alprazolam for anxiety and simvastatin for cholesterol management. I advised her to continue with her current medications and to follow up with urology and hematology for her bladder cancer and hemochromatosis, respectively. We also discussed the need for regular screenings, including lung cancer screening and colon cancer screening with a stool test. Patient Instructions - Stop smoking to reduce health risks. - Continue taking prescribed medications as directed. - Follow up with urology and hematology for ongoing care. - Schedule regular screenings for lung and colon cancer. - Maintain a healthy diet and exercise regularly. Orders: Orders Influenza [id number] Immunization Today Elisa House MD Z23 - Encounter for immunization Free T4 (Free Thyroxine) Today Elisa House MD E83.119 - Hemochromatosis, unspecified Ferritin Today Elisa House MD E83.119 - Hemochromatosis, unspecified Lipid Panel Today Elisa House MD E78.00 - Pure hypercholesterolemia, unspecified, E83.119 - Hemochromatosis, unspecified Vitamin B12 and Folate Today Elisa House MD E83.119 - Hemochromatosis, unspecified MM tomosynthesis screening BI Today Elisa House MD Z12.31 - Encounter for screening mammogram for malignant neoplasm of breast CA echo transthoracic complete Today Elisa House MD I25.10 - Atherosclerotic heart disease of [place] coronary artery without angina pectoris Complete Blood Count Auto Diff Today Elisa House MD E83.119 - Hemochromatosis, unspecified Comprehensive Met. Panel Today Elisa House MD E83.119 - Hemochromatosis, unspecified Thyroid Stimulating Hormone Today Elisa House MD E83.119 - Hemochromatosis, unspecified Vitamin D 25-OH Total Today Elisa House MD E83.119 - Hemochromatosis, unspecified UA CC w/rflx Micro + Cult Today Elisa House MD E83.119 - Hemochromatosis, unspecified, R30.0 - Dysuria US carotid duplex BI Today Elisa House MD R09.89 - Other specified symptoms and signs involving the circulatory and respiratory systems Referrals Urology Referral Elisa House MD Z85.51 - Personal history of malignant neoplasm of bladder Hematology & Oncology Referral Elisa House MD E83.119 - Hemochromatosis, unspecified Cardiology Referral Elisa House MD I25.10 - Atherosclerotic heart disease of [place] coronary artery without angina pectoris Medications: Changed From omeprazole 20 mg PO BID 30 days 60 caps 0RF R12 - Heartburn To omeprazole 20 mg PO .QD PRN R12 - Heartburn Cara Bowling NP Quality Reporting (2019) Depression/Bipolar (159/160/161/177) PHQ-9: Total score: 9 Coding Level of Care Code Medicare Subsequent (G0439) Diagnoses Annual physical exam Z00.00 Nicotine dependence, cigarettes, uncomplicated F17.210 Panlobular emphysema J43.1 COPD type: emphysema Emphysema type: panlobular History of bladder cancer Z85.51 Breast cancer screening by mammogram Z12.31 Hemochromatosis E83.119 Colon cancer screening Z12.11 Impaired glucose tolerance R73.02 Hypercholesterolemia E78.00 Coronary artery disease involving [place] coronary artery of [place] heart without angina pectoris I25.10 Coronary Disease-Associated Artery/Lesion type: [place] artery [place] vs. transplanted heart: [place] heart Associated angina: without angina Hypertension I10 Generalized anxiety disorder F41.1 Carotid bruit R09.89 Additional Codes PHQ-9 - 29883 - PHQ-9 Billing: Yes ([id number])
[2025-08-29 16:13] VITALS: BMI 25.4
== END 2025-08-29 17:01 | disposition home or self-care (01) ==
LOC: HO.HMCH 15:57
PROVIDERS: PCP Internal Medicine; Visit Provider Internal Medicine
DX: Z00.00 Encounter for general adult medical examination without abnormal findings (principal); F17.210 Nicotine dependence, cigarettes, uncomplicated; J43.1 Panlobular emphysema; Z85.51 Personal history of malignant neoplasm of bladder; Z12.31 Encounter for screening mammogram for malignant neoplasm of breast; E83.119 Hemochromatosis, unspecified; R73.02 Impaired glucose tolerance (oral); E78.00 Pure hypercholesterolemia, unspecified; I25.10 Atherosclerotic heart disease of native coronary artery without angina pectoris; I10 Essential (primary) hypertension; F41.1 Generalized anxiety disorder; Z23 Encounter for immunization

== ENCOUNTER → 2025-08-29 15:56 | Outpatient (BNVA) | payer MEDICARE, MEDICAID, SELFPAY | PROVIDERS: PCP Internal Medicine; Visit Provider Internal Medicine | DX: Z00.00 Encounter for general adult medical examination without abnormal findings (principal); Z23 Encounter for immunization; J43.1 Panlobular emphysema; E83.119 Hemochromatosis, unspecified; R73.02 Impaired glucose tolerance (oral); E78.00 Pure hypercholesterolemia, unspecified; I25.10 Atherosclerotic heart disease of native coronary artery without angina pectoris; F17.210 Nicotine dependence, cigarettes, uncomplicated; I10 Essential (primary) hypertension; F41.1 Generalized anxiety disorder; R09.89 Other specified symptoms and signs involving the circulatory and respiratory systems; Z85.51 Personal history of malignant neoplasm of bladder; Z13.31 Encounter for screening for depression | CPT/HCPCS: 90471; 90656; 96127 ==

== ENCOUNTER 2025-10-23 14:20 | Outpatient (AMB) | payer MEDICARE, MEDICAID, SELFPAY ==
--- NOTE | 2025-10-23 14:22 | A.OFFVIS_ITS ---
Intake Visit Reasons: Hx bladder cancer/UA(set) Intake Note: Reason for Visit: New Patient History Of Bladder Cancer Urology Meds: None Blood Thinners: Aspirin Antibiotic Allergy: Erythromycin, Penicillin, Sulfa Labs: None Imaging: None Last PVR: None Bladder Cancer- 2012 Bladder Tumor removed-2012 recurrance of Bladder Cancer- 2013 Bladder Biopsy- 2019 Family History Bladder Cancer? No Kidney Cancer? 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 Accompanied by: Self / Same As Patient Allergies erythromycin base Allergy (Severe, Verified 10/23/25 14:27) Anaphylaxis Penicillins Allergy (Severe, Verified 10/23/25 14:27) Unknown Sulfa (Sulfonamide Antibiotics) Allergy (Intermediate, Verified 10/23/25 14:27) allergic reaction fentanyl Allergy (Unknown, Verified 10/23/25 14:27) vomiting morphine Allergy (Unknown, Verified 10/23/25 14:27) Unknown oxycodone (From Percodan) Allergy (Unknown, Verified 10/23/25 14:27) Unknown varenicline (From CHANTIX) Allergy (Unknown, Verified 10/23/25 14:27) NAUSEA & VOMITING HPI Comments Details: Saranya is a pleasant female. She is a patient of Dr. ENCISO. She is seen for the following urologic conditions - bladder cancer Recurrent low-grade bladder cancer Needs to continue surveillance cystoscopy Bladder cancer - low-grade with initial recurrence Original presentation June 2013 Remained in surveillance Recurrence in March of 2014 with TURBT and mitomycin-C Repeat biopsy performed in 2019 negative Smoker prior discussions about cessation performed Prior hepatitis C diagnosis PFSH Medical History Chest pain History of bladder cancer Hepatitis C 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 Mother Diabetes Brother Hemochromatosis Stomach cancer Sister Hemochromatosis Son In good health Social History Housing: House Alcohol intake: current Alcohol intake frequency: holidays/special occasions only Comment: 1 glass once amonth Patient Tobacco Use Status: Current someday Tobacco user Tobacco use type: Cigarette Cigarette Packs Per Day: 0.5 Cigarettes Per Day: 10 Years Smoked: since 14 years e-Cigarette/Vaping Use: Never Used Second Hand Smoke Exposure: No service: No Current occupational status: retired Cognitive needs: No Hearing needs: No Vision needs: Yes Review of Systems Const Denies chills and Denies fever(s) Card Reports no additional complaints and Denies syncope Resp Denies cough GI Denies abdominal pain and Denies heartburn Reports as per HPI and Denies change in libido Neuro Denies syncope Psych Denies change in libido Endo Denies change in libido Physical Exam Const General: cooperative, healthy appearing, comfortable and no acute distress Orientation/consciousness: patient oriented x3 HEENT Face and sinus: Yes normal facial exam Mouth: moist mucous membranes Neck Neck: Yes normal visual inspection, Yes full ROM and Yes trachea midline Chest Chest palpation & inspection: normal inspection of the chest Resp Effort & Inspection: normal respiratory effort, able to speak in complete sentences and no respiratory distress GI Inspection: Yes normal to inspection Back/Spine/Pelvis Cervical Spine: normal cervical lordosis Thoracic/Lumbar Spine: thoracic and lumbar spine normal to inspection Skin General skin exam: no rashes or lesions noted Neuro General: patient oriented x3, gait normal, tone normal and moves all extremities Extrem General: Yes normal to inspection and Yes capillary refill normal Assessment & Plan Assessment & Plan (1) History of bladder cancer: Comment: June 2013 recurrence 2013 bladder biopsy December 10- Code(s): Z85.51 - Personal history of malignant neoplasm of bladder Category: Medical Plan Office cystoscopy Patient Instructions: This note is constructed using voice recognition software. While every effort has been made to ensure accuracy inside sales account executive errors may have been included. Imaging studies, laboratory and physical exam results were discussed and reviewed in detail. No major barriers to patient understanding were identified. An opportunity to ask questions regarding the treatment plan was provided. All questions were answered. The patient expressed understanding and agreement with the above treatment plan. The patient is aware they should contact our office by phone for worsening of their current condition or the appearance of new urologic symptoms. Compliance is encouraged with any medications and followup testing that is ordered. It is a privilege to participate in the urologic care of your patient. If you have any questions or concerns regarding treatment for the above conditions, or other urologic issues, please do not hesitate to contact me. The office telephone contact is [phone]. Sincerely, Dr Alli Wiggins MD, [facility] - Urology Compassionate Specialist Care for the Genitourinary System Coding Level of Care Code New Pt Level 3 (33384) Diagnoses History of bladder cancer Z85.51
--- OUTSIDE RECORDS SUMMARY | 2025-10-23 17:11 | XMS_ITS | Patient Health Record ---
Author Organization [facility] Address [address] [place] [id number] Care Team Providers Care Bookkeeping Clerks Supervisor Name Role Phone Irineo Steward Unavailable [phone] Reason For Referral No Information Plan Of Treatment No Information
== END 2025-10-23 14:48 | disposition home or self-care (01) ==
LOC: HO.HUSH 14:21
PROVIDERS: PCP Internal Medicine; Visit Provider Urology
DX: Z85.51 Personal history of malignant neoplasm of bladder (principal)
CPT/HCPCS: 99203

== ENCOUNTER 2025-10-23 14:20 | Outpatient (REF) | payer MEDICARE, MEDICAID, SELFPAY | END 2025-10-23 14:21 | disposition home or self-care (01) | LOC: HO.LAB 14:20 | PROVIDERS: PCP Internal Medicine; Visit Provider Urology | DX: F17.210 Nicotine dependence, cigarettes, uncomplicated (principal); Z85.51 Personal history of malignant neoplasm of bladder | CPT/HCPCS: 99202 ==